=== PATIENT | female | born 1960 | race African-American/Black ===

== ENCOUNTER 2018-09-16 09:40 | Emergency (ER) | payer SELFPAY ==
[2018-09-16] MEDS ORDERED: ONDANSETRON HCL INJ/PF 4 MG/2 ML SDV IV ONE (10:27)
[2018-09-16] MEDS ORDERED: FENTANYL CITRATE INJ/PF 100 MCG/2 ML AMPUL IV ONE (10:27)
--- NOTE | 2018-09-16 10:30 | ER Document Report ---
ED Medical Screen (RME) - General Chief Complaint: Low Back Pain Stated Complaint: BACK PAIN Time Seen by Provider: 09/16/18 10:24 Primary Care Provider: ISREAL CHAPA [Primary Care Provider] - Follow up as needed Mode of Arrival: Ambulatory Information source: Patient Notes: 58-year-old female presents emergency department with a one week history of right flank pain with radiation into the right lower quadrant. She describes the pain as a constant sharp and stabbing sensation. She states that she is tried Tylenol and Advil without complete relief of symptoms. She is having associated nausea and constipation. She denies any dysuria, increased urgency, increased frequency, hematuria. Patient does have a history of kidney stones and states that this feels similar to previous. I have greeted and performed a rapid initial assessment of this patient. A comprehensive ED assessment and evaluation of the patient, analysis of test results and completion of the medical decision making process will be conducted by additional ED providers. PHYSICAL EXAMINATION: GENERAL: Well-appearing, well-nourished and in no acute distress. HEAD: Atraumatic, normocephalic. EYES: Pupils equal round extraocular movements intact, conjunctiva are normal. ENT: Nares patent NECK: Normal range of motion LUNGS: No respiratory distress Musculoskeletal: Normal range of motion NEUROLOGICAL: Normal speech, normal gait. PSYCH: Normal mood, normal affect. SKIN: Warm, Dry, normal turgor, no rashes or lesions noted. TRAVEL OUTSIDE OF THE [place] IN LAST 30 DAYS: No - Related Data Allergies/Adverse Reactions: No Known Allergies Allergy (Verified 09/16/18 09:53) Past Medical History - Social History Chew tobacco use (# tins/day): No Frequency of alcohol use: None Drug Abuse: None Renal/ Medical History: Reports: Hx Kidney Stones. Denies: Hx Peritoneal Dialysis Past Surgical History: Reports: Hx Hysterectomy Physical Exam - Vital signs Vitals: Temp Pulse Resp BP Pulse Ox 98.1 F 68 18 149/94 H 100 09/16/18 09:51 09/16/18 09:51 09/16/18 09:51 09/16/18 09:51 09/16/18 09:51 Course - Vital Signs Vital signs: Temp Pulse Resp BP Pulse Ox 98.1 F 68 18 149/94 H 100 09/16/18 09:51 09/16/18 09:51 09/16/18 09:51 09/16/18 09:51 09/16/18 09:51 Doctor's Discharge - Discharge Referrals: LOCALMD,NO [Primary Care Provider] - Follow up as needed
[2018-09-16 11:05] LABS: APPEARANCE,URINE SLIGHTLY-CLOUDY; BILIRUBIN,URINE NEGATIVE (NEGATIVE); COLOR,URINE YELLOW; GLUCOSE, URINE NEGATIVE (NEGATIVE); KETONES,URINE NEGATIVE (NEGATIVE); LEUKOCYTE ESTERASE,URINE SMALL (NEGATIVE); NITRITE,URINE POSITIVE (NEGATIVE); PROTEIN,URINE NEGATIVE (NEGATIVE); URINE SPECIFIC GRAVITY 1.009; UROBILINOGEN,URINE NEGATIVE mg/dL (<2.0)
--- NOTE | 2018-09-16 11:07 | RADIOLOGY REPORT (SQ) ---
EXAM DESCRIPTION: CT ABD/PELVIS NO ORAL OR IV COMPLETED DATE/TIME: 09/16/2018 10:51 am REASON FOR STUDY: right flank pain COMPARISON: None. TECHNIQUE: CT scan of the abdomen and pelvis performed without intravenous or oral contrast. Images reviewed with lung, soft tissue, and bone windows. Reconstructed coronal and sagittal MPR images revi ewed. All images stored on PACS. All CT scanners at this facility use dose modulation, iterative reconstruction, and/or weight based d osing when appropriate to reduce radiation dose to as low as reasonably achievable (ALARA). [facility]: Dose Right [facility]: CareDose [facility]: Dose Right [facility]: Teradose 4D [facility]: Smart [employer] RADIATION DOSE: CT Rad equipment meets quality standard of care and radiation dose reduction techniq ues were employed. CTDIvol: 4.9 mGy. DLP: 236 mGy-cm.mGy. LIMITATIONS: None. FINDINGS: LOWER CHEST: No significant findings. No nodules or infiltrates. NON-CONTRASTED LIVER, SPLEEN, ADRENALS: Evaluation limited by lack of IV contrast. No identified sign ificant masses. Multiple fluid attenuation lesions of the liver, likely simple cysts although incomp letely characterized. PANCREAS: No masses. No peripancreatic inflammatory changes. GALLBLADDER: No identified stones by CT criteria. No inflammatory changes to suggest cholecystitis. RIGHT KIDNEY AND URETER: No suspicious masses. Assessment limited by lack of IV contrast. No signif icant calcifications. No hydronephrosis or hydroureter. LEFT KIDNEY AND URETER: No suspicious masses. Assessment limited by lack of IV contrast. Fluid signa l lesions, likely simple cysts. No significant calcifications. No hydronephrosis or hydroureter. AORTA AND RETROPERITONEUM: No aneurysm. No retroperitoneal masses or adenopathy. BOWEL AND PERITONEAL CAVITY: No obvious masses or inflammatory changes. No free fluid. Large burden of stool in the colon. APPENDIX: Normal. PELVIS, BLADDER, AND ABDOMINAL WALL:No abnormal masses. No free fluid. Bladder normal. BONES: No significant findings. OTHER: No other significant finding. IMPRESSION: No noncontrast CT findings to explain right-sided flank pain. No evidence of urinary tr act calculus or hydronephrosis. Large burden of stool in the colon. COMMENT: Quality ID # [id number]: Final reports with documentation of one or more dose reduction techniques (e.g., Automated exposure control, adjustment of the mA and/or kV according to patient size, use of iterative reconstruction technique) TECHNICAL DOCUMENTATION: JOB ID: [id number] [employer]- All Rights Reserved Reading location - IP/workstation name: [email or web address]
[2018-09-16] MEDS ORDERED: NORMAL SALINE 1000 ML 1,000 ML IV ONE (11:20)
[2018-09-16] MEDS ORDERED: CEFTRIAXONE INJ 1000 MG VIAL IV ONE (11:26)
--- NOTE | 2018-09-16 11:28 | ER Document Report ---
ED GI/ - General Chief Complaint: Low Back Pain Stated Complaint: BACK PAIN Time Seen by Provider: 09/16/18 10:24 Primary Care Provider: ISREAL CHAPA [NO LOCAL MD] - Follow up as needed Mode of Arrival: Ambulatory Information source: Patient TRAVEL OUTSIDE OF THE [place] IN LAST 30 DAYS: No - HPI Patient complains to provider of: Dysuria, Flank pain Onset: Last week Timing/Duration: Persistent, Worse Quality of pain: Dull, Fullness, Pressure Severity at maximum: Moderate Severity in ED: Moderate Pain Level: 4 Location: Right flank Associated symptoms: Dysuria, Nausea, Urinary frequency Exacerbated by: Denies Relieved by: Denies Similar symptoms previously: No Recently seen / treated by doctor: No Notes: 09/16/18 11:27 Patient is a 58-year-old female presenting to the emergency room complaining of right flank pain that is been present for 3 or 4 days, is associated with urinary frequency and dysuria as well as nausea, states she feels dry and dehydrated as well, patient denies any diarrhea in fact reports she is generally constipated, she denies any blood in her urine, no fevers, no vomiting - Related Data Allergies/Adverse Reactions: No Known Allergies Allergy (Verified 09/16/18 09:53) Past Medical History - General Information source: Patient - Social History Smoking Status: Never Smoker Chew tobacco use (# tins/day): No Frequency of alcohol use: None Drug Abuse: None Family History: Reviewed & Not Pertinent Patient has suicidal ideation: No Patient has homicidal ideation: No Renal/ Medical History: Reports: Hx Kidney Stones. Denies: Hx Peritoneal Di alysis Past Surgical History: Reports: Hx Hysterectomy Review of Systems - Review of Systems Constitutional: No symptoms reported EENT: No symptoms reported Cardiovascular: No symptoms reported Respiratory: No symptoms reported Gastrointestinal: See HPI Genitourinary: See HPI Female Genitourinary: No symptoms reported Musculoskeletal: No symptoms reported Skin: No symptoms reported Hematologic/Lymphatic: No symptoms reported Neurological/Psychological: No symptoms reported -: Yes All other systems reviewed and negative Physical Exam - Vital signs Vitals: Temp Pulse Resp BP Pulse Ox 98.1 F 68 18 149/94 H 100 09/16/18 09:51 09/16/18 09:51 09/16/18 09:51 09/16/18 09:51 09/16/18 09:51 Interpretation: Normal - General General appearance: Appears well, Alert - HEENT Head: Normocephalic, Atraumatic Eyes: Normal Pupils: PERRL - Respiratory Respiratory status: No respiratory distress Chest status: Nontender Breath sounds: Normal Chest palpation: Normal - Cardiovascular Rhythm: Regular Heart sounds: Normal auscultation Murmur: No - Abdominal Inspection: Normal Distension: No distension Bowel sounds: Normal Tenderness: Nontender Organomegaly: No organomegaly - Back Back: Normal, CVA tenderness - Right side - Extremities General upper extremity: Normal inspection, Nontender, Normal color, Normal ROM, Normal temperature General lower extremity: Normal inspection, Nontender, Normal color, Normal ROM, Normal temperature, Normal weight bearing. No: Luz's sign - Neurological Neuro grossly intact: Yes Cognition: Normal Orientation: AAOx4 [place] Coma Scale Eye Opening: Spontaneous [place] Coma Scale Verbal: Oriented [place] Coma Scale Motor: Obeys Commands [place] Coma Scale Total: 15 Speech: Normal Motor strength normal: LUE, RUE, LLE, RLE Sensory: Normal - Psychological Associated symptoms: Normal affect, Normal mood - Skin Skin Temperature: Warm Skin Moisture: Dry Skin Color: Normal Course - Re-evaluation Re-evalutation: 09/16/18 13:18 Patient resting comfortably, reports feeling much better, lab and imaging findings were discussed at bedside which are consistent with a urinary tract infection, patient will be discharged with prescription for antibiotics and instructions for follow-up, advised to return if symptoms worsen, patient acknowledges understanding and agreement with this plan - Vital Signs Vital signs: Temp Pulse Resp BP Pulse Ox 98.1 F 68 18 149/94 H 100 09/16/18 09:51 09/16/18 09:51 09/16/18 09:51 09/16/18 09:51 09/16/18 09:51 - Laboratory Result Diagrams: 09/16/18 11:37 09/16/18 11:37 Laboratory results interpreted by me: 09/16/18 09/16/18 09/16/18 10:30 11:37 11:37 WBC 1.9 L Hgb 11.9 L Monocytes % (Manual) 2 L Abs Neuts (Manual) 1.0 L Abs Monocytes (Manual) 0.0 L Calcium 11.4 H AST 42 H Urine Blood SMALL H Urine Nitrite POSITIVE H Ur Leukocyte Esterase SMALL H - Diagnostic Test Radiology reviewed: Image reviewed, Reports reviewed Discharge - Discharge Clinical Impression: Urinary tract infection Qualifiers: Urinary tract infection type: site unspecified Hematuria presence: without hematuria Qualified Code(s): N39.0 - Urinary tract infection, site not specified Condition: Stable Disposition: HOME, SELF-CARE Instructions: Urinary Tract Infection ([facility]), Cephalexin ([facility]) Additional Instructions: Follow up with your primary care provider in one to 2 days. Return to the emergency room immediately if symptoms worsen or any additional concerns. Prescriptions: Hydrocodone/Acetaminophen [[place] 5-325 mg Tablet] 1 tab PO Q6HP PRN #10 tablet PRN Reason: Cephalexin Monohydrate [Keflex 500 mg Capsule] 500 mg PO BID #20 capsule Referrals: LOCALMD,NO [NO LOCAL MD] - Follow up as needed
[2018-09-16] MEDS ORDERED: KETOROLAC TROMETHAMINE INJ/PF 30 MG/1 ML SDV IV ONE (11:29)
[2018-09-16 11:53] LABS: HEMATOCRIT 36.3 % (36.0-47.0); HEMOGLOBIN 11.9 g/dL (12.0-15.5); MEAN CORPUSCULAR HEMOGLOBIN 28.2 pg (27.0-33.4); MEAN CORPUSCULAR HGB CONC 32.8 g/dL (32.0-36.0); MEAN CORPUSCULAR VOLUME 86 fl (80-97); PLATELET COUNT 221 10^3/uL (150-450); RED BLOOD COUNT 4.21 10^6/uL (3.72-5.28); RED CELL DISTRIBUTION WIDTH 13.4 % (11.5-14.0)
[2018-09-16 12:06] LABS: ALANINE AMINOTRANSFERASE 42 U/L (9-52); ALBUMIN 4.3 g/dL (3.5-5.0); ALKALINE PHOSPHATASE 108 U/L (38-126); ANION GAP 8 (5-19); ASPARTATE AMINO TRANSFERASE 42 U/L (14-36); BILIRUBIN,DIRECT 0.3 mg/dL (0.0-0.4); BILIRUBIN,TOTAL 0.4 mg/dL (0.2-1.3); BLOOD UREA NITROGEN 12 mg/dL (7-20); CALCIUM 11.4 mg/dL (8.4-10.2); CARBON DIOXIDE 26 mmol/L (22-30); CHLORIDE 106 mmol/L (98-107); GLUCOSE 85 mg/dL (75-110); LIPASE 108.7 U/L (23-300); POTASSIUM 4.2 mmol/L (3.6-5.0); SODIUM 139.8 mmol/L (137-145); TOTAL PROTEIN 7.2 g/dL (6.3-8.2)
[2018-09-16 12:40] LABS: WHITE BLOOD COUNT 1.9 10^3/uL (4.0-10.5)
[2018-09-16] MEDS ORDERED: MORPHINE SULFATE 10 MG/ML INJ IV ONE (12:42)
[2018-09-16 12:57] LABS: ABSOLUTE LYMPHOCYTES# (MANUAL) 0.8 10^3/uL (0.5-4.7); BASOPHILS % (MANUAL) 0 % (0-2); EOSINOPHILS % (MANUAL) 3 % (0-6); LYMPHOCYTES % (MANUAL) 40 % (13-45); MONOCYTES % (MANUAL) 2 % (3-13); PLATELET COMMENT ADEQUATE; SEGMENTED NEUTROPHILS % (MAN) 54 % (42-78); TOTAL CELLS COUNTED 100; TOXIC GRANULATION SLIGHT; TOXIC VACUOLATION PRESENT
[2018-09-16 12:58] LABS: RBC MORPHOLOGY COMMENT NORMO-CYTIC/CHROMIC
[2018-09-16 13:37] VITALS: BP 166/72
--- NOTE | 2018-09-16 13:57 | EKG REPORT ---
SEVERITY:- OTHERWISE NORMAL ECG - SINUS RHYTHM LEFT AXIS DEVIATION : Confirmed by: Bjorn Hanna MD 16-Sep-2018 13:56:45
[2018-09-17 15:07] LABS: PATH REVIEW PATHOLOGIST REVIEWED
== END 2018-09-16 13:32 | disposition home or self-care (01) ==
LOC: ER 09:40
DX: N39.0 Urinary tract infection, site not specified (principal); M54.5 Low back pain; R10.9 Unspecified abdominal pain; R11.0 Nausea; Z90.710 Acquired absence of both cervix and uterus
CPT/HCPCS: 93005; 36415; 83690; 85025; 80053; 81001; 74176; 93010; J1885; J2270; J0696; J2405; J7030

== ENCOUNTER 2018-09-26 10:08 | Emergency (ER) | payer SELFPAY ==
[2018-09-26] MEDS ORDERED: ONDANSETRON 4 MG TAB.RAPDIS PO ONE (11:04)
--- NOTE | 2018-09-26 11:04 | ER Document Report ---
ED Medical Screen (RME) - General Chief Complaint: Abdominal Pain Stated Complaint: ABDOMINAL PAIN AND NUMBNESS Time Seen by Provider: 09/26/18 10:53 Mode of Arrival: Ambulatory Information source: Patient Notes: 58-year-old female presents the emergency department with complaints of sharp stabbing pain in the right lower abdominal pain that is been going on for the last 2 weeks. No alleviating or exacerbating factors. Patient states that she was seen and evaluated in the emergency department initially and was diagnosed with urinary tract infection. She was discharged home on Keflex. She states that she did have a CT abdomen pelvis done in the emergency department no kidney stone or appendicitis was appreciated. She's been taking the keflex but symptoms haven't improved. Patient is having associated nausea, vomiting, fever, chills. I have greeted and performed a rapid initial assessment of this patient. A comprehensive ED assessment and evaluation of the patient, analysis of test results and completion of the medical decision making process will be conducted by additional ED providers. PHYSICAL EXAMINATION: GENERAL: Well-appearing, well-nourished and in no acute distress. HEAD: Atraumatic, normocephalic. EYES: Pupils equal round extraocular movements intact, conjunctiva are normal. ENT: Nares patent NECK: Normal range of motion LUNGS: No respiratory distress Musculoskeletal: Normal range of motion NEUROLOGICAL: Normal speech, normal gait. PSYCH: Normal mood, normal affect. SKIN: Warm, Dry, normal turgor, no rashes or lesions noted. TRAVEL OUTSIDE OF THE [place] IN LAST 30 DAYS: No - Related Data Allergies/Adverse Reactions: No Known Allergies Allergy (Verified 09/26/18 10:58) Past Medical History - Social History Chew tobacco use (# tins/day): No Frequency of alcohol use: None Drug Abuse: None Renal/ Medical History: Reports: Hx Kidney Stones. Denies: Hx Peritoneal Dialysis Past Surgical History: Reports: Hx Hysterectomy Physical Exam - Vital signs Vitals: Temp Pulse Resp BP Pulse Ox 98.4 F 64 20 147/90 H 99 09/26/18 10:19 09/26/18 10:19 09/26/18 10:19 09/26/18 10:09/26/18 10:19 Course - Vital Signs Vital signs: Temp Pulse Resp BP Pulse Ox 98.4 F 64 20 147/90 H 99 09/26/18 10:19 09/26/18 10:19 09/26/18 10:19 09/26/18 10:09/26/18 10:19
[2018-09-26 11:45] LABS: ABSOLUTE LYMPHOCYTES (AUTO) 1.1 10^3/uL (0.5-4.7); ABSOLUTE MONOCYTES (AUTO) 0.4 10^3/uL (0.1-1.4); BASOPHILS % (AUTO) 1.6 % (0-2); HEMATOCRIT 37.2 % (36.0-47.0); HEMOGLOBIN 12.1 g/dL (12.0-15.5); LYMPHOCYTES % (AUTO) 41.6 % (13-45); MEAN CORPUSCULAR HEMOGLOBIN 28.2 pg (27.0-33.4); MEAN CORPUSCULAR HGB CONC 32.4 g/dL (32.0-36.0); MEAN CORPUSCULAR VOLUME 87 fl (80-97); MONOCYTES % (AUTO) 15.6 % (3-13); PLATELET COUNT 273 10^3/uL (150-450); RED BLOOD COUNT 4.28 10^6/uL (3.72-5.28); RED CELL DISTRIBUTION WIDTH 14.3 % (11.5-14.0); SEGMENTED NEUTROPHILS % (AUTO) 39.2 % (42-78); TOTAL CELLS COUNTED % (AUTO) 100 %; WHITE BLOOD COUNT 2.5 10^3/uL (4.0-10.5)
[2018-09-26 11:55] LABS: APPEARANCE,URINE CLEAR; BILIRUBIN,URINE NEGATIVE (NEGATIVE); COLOR,URINE AMBER; GLUCOSE, URINE NEGATIVE (NEGATIVE); KETONES,URINE NEGATIVE (NEGATIVE); LEUKOCYTE ESTERASE,URINE NEGATIVE (NEGATIVE); NITRITE,URINE POSITIVE (NEGATIVE); PROTEIN,URINE NEGATIVE (NEGATIVE); URINE SPECIFIC GRAVITY 1.011
[2018-09-26] MEDS ORDERED: KETOROLAC TROMETHAMINE INJ/PF 30 MG/1 ML SDV IV ONE (11:58)
[2018-09-26] MEDS ORDERED: NORMAL SALINE 1000 ML 1,000 ML IV ONE (11:58)
[2018-09-26] MEDS ORDERED: CEFTRIAXONE INJ 1000 MG VIAL IV ONE (11:59)
--- NOTE | 2018-09-26 11:59 | ER Document Report ---
ED General - General Chief Complaint: Abdominal Pain Stated Complaint: ABDOMINAL PAIN AND NUMBNESS Time Seen by Provider: 09/26/18 10:53 Primary Care Provider: CURT CRENSHAW DO [Primary Care Provider] - Follow up as needed Mode of Arrival: Ambulatory Notes: Patient is a 58-year-old female that presents to the emergency department for chief complaint of right flank and abdominal pain. Patient reports his been having this pain for about 2 weeks now, she was initially seen in the ED at that time, had a CT at that time which she states was negative, she was given a pain pill which she states with use of the pain and then it has come back since she is run out of those. She was treated for a UTI at that time with Keflex, which she states did not help her symptoms. She was taken some ibuprofen which did seem to help her with her pain, but because it was persisting she decided to com e to the emergency department. She currently rates her pain as a 6 out of 10 describes it as sharp and constant. She states she has been having constipation and has not had many bowel movements recently, she is been having nausea but no vomiting. Denies fevers, chills, night sweats, chest pain, shortness of breath, no other complaints at this time. Past Medical History: Kidney stones Past Surgical History: Hysterectomy Social History: Denies current tobacco, alcohol or drug use Family History: Reviewed and noncontributory for presenting illness Allergies: Reviewed, see documented allergy list. REVIEW OF SYSTEMS: Other than noted above, the 12 point review of systems was reviewed with the patient and were negative, all pertinent findings are included in the HPI. PHYSICAL EXAMINATION: Vital signs reviewed, nursing noted reviewed. GENERAL: Patient appears uncomfortable HEAD: Atraumatic, normocephalic. EYES: Eyes appear normal, extraocular movements intact, sclera anicteric, co njunctiva are normal. ENT: nares patent, oropharynx clear without exudates. Moist mucous membranes. NECK: Normal range of motion, supple without lymphadenopathy LUNGS: Breath sounds clear to auscultation bilaterally and equal. No wheezes rales or rhonchi. HEART: Regular rate and rhythm without murmurs ABDOMEN: Soft, mild right flank tenderness to palpation right upper quadrant tenderness with negative Garcia sign,, normoactive bowel sounds. No rebound, guarding, or rigidity. No masses appreciated. EXTREMITIES: Nontender, good range of motion, no pitting or edema. NEUROLOGICAL: No focal neurological deficits. Moves all extremities spontaneously Motor and sensory grossly intact on exam. PSYCH: Normal mood, normal affect. SKIN: Warm, Dry, normal turgor, no rashes or lesions noted on exposed skin TRAVEL OUTSIDE OF THE [place] IN LAST 30 DAYS: No - Related Data Allergies/Adverse Reactions: No Known Allergies Allergy (Verified 09/26/18 10:58) Past Medical History - General Information source: Patient - Social History Smoking Status: Never Smoker Chew tobacco use (# tins/day): No Frequency of alcohol use: None Drug Abuse: None Family History: Reviewed & Not Pertinent Patient has suicidal ideation: No Patient has homicidal ideation: No Renal/ Medical History: Reports: Hx Kidney Stones. Denies: Hx Peritoneal Dialysis Past Surgical History: Reports: Hx Hysterectomy Physical Exam - Vital signs Vitals: Temp Pulse Resp BP Pulse Ox 98.4 F 64 20 147/90 H 99 09/26/18 10:19 09/26/18 10:19 09/26/18 10:19 09/26/18 10:19 09/26/18 10:19 Course - Re-evaluation Re-evalutation: Patient seen and examined vital signs reviewed. Laboratory data and imaging were ordered as appropriate for the patient's presenting symptoms and complaint, with consideration of any critical or life threatening conditions that may be associated with their obtained history and exam as noted above. Patient was treated with IV fluids, Toradol, Zofran initially for her pain and nausea Results were reviewed when available and demonstrated unremarkable blood work, her UA was positive for nitrites, indicative of possible UTI, right upper quadrant ultrasound was performed, and was negative for any acute pathology, no hydronephrosis of the right kidney, and normal-appearing gallbladder. The patient was re-evaluated and was still having some pain, she was given additional morphine for pain, and on her additional evaluation, she was feeling somewhat better. Evaluation was most consistent with urinary tract infection, possible pyonephritis, patient was given a dose of IV Rocephin in the emergency department, will manage as outpatient with ciprofloxacin 500 mg for 7 additional days, patient additionally will be given a prescription for anti-inflammatory as well as Pyridium. Patient agreeable to plan of care. Results were discussed with the patient at this point, after careful consideration I feel that that patient can be discharged from the emergency department, the patient was educated treatments and reasons to return to the emergency department based on their presumed diagnosis as noted above, they were advised to followup with a primary care physician in 2-3 days. Patient was agreeable to plan of care. *Note is created using voice recognition software and may contain spelling, syntax or grammatical errors. Laboratory 09/26/18 09/26/18 09/26/18 11:18 11:18 11:18 WBC 2.5 L RBC 4.28 Hgb 12.1 Hct 37.2 MCV 87 MCH 28.2 MCHC 32.4 RDW 14.3 H Plt Count 273 Seg Neutrophils % 39.2 L Lymphocytes % 41.6 Monocytes % 15.6 H Eosinophils % 2.0 Basophils % 1.6 Absolute Neutrophils 1.0 L Absolute Lymphocytes 1.1 Absolute Monocytes 0.4 Absolute Eosinophils 0.0 Absolute Basophils 0.0 Sodium 140.9 Potassium 3.6 Chloride 106 Carbon Dioxide 25 Anion Gap 10 BUN 12 Creatinine 0.76 Est GFR ( Amer) > 60 Est GFR (Non-Af Amer) > 60 Glucose 95 Calcium 11.7 H Total Bilirubin 0.6 Direct Bilirubin 0.0 Neonat Total Bilirubin Not Reportable Neonat Direct Bilirubin Not Reportable Neonat Indirect Bili Not Reportable AST 36 ALT 54 H Alkaline Phosphatase 110 Total Protein 8.0 Albumin 4.7 Lipase 186.7 Urine Color GENARO Urine Appearance CLEAR Urine pH 5.0 Ur Specific [place] 1.011 Urine Protein NEGATIVE Urine Glucose (UA) NEGATIVE Urine Ketones NEGATIVE Urine Blood NEGATIVE Urine Nitrite POSITIVE H Urine Bilirubin NEGATIVE Urine Urobilinogen 4.0 H Ur Leukocyte Esterase NEGATIVE Urine WBC (Auto) 1 Urine RBC (Auto) 3 Urine Bacteria (Auto) TRACE Squamous Epi Cells Auto <1 Urine Mucus (Auto) OCC Urine Ascorbic Acid NEGATIVE Abdomen Ultrasound 09/26/18 11:58 IMPRESSION: NO ACUTE FINDINGS. - Vital Signs Vital signs: Temp Pulse Resp BP Pulse Ox 98.4 F 64 20 147/90 H 99 09/26/18 10:19 09/26/18 10:19 09/26/18 10:19 09/26/18 10:19 09/26/18 10:19 - Laboratory Result Diagrams: 09/26/18 11:18 09/26/18 11:18 Laboratory results interpreted by me: 09/26/18 09/26/1819 11:18 11:18 11:18 WBC 2.5 L RDW 14.3 H Seg Neutrophils % 39.2 L Monocytes % 15.6 H Absolute Neutrophils 1.0 L Calcium 11.7 H ALT 54 H Urine Nitrite POSITIVE H Urine Urobilinogen 4.0 H Discharge - Discharge Clinical Impression: Pyelonephritis, Flank pain Condition: Stable Disposition: HOME, SELF-CARE Instructions: Pyelonephritis ([facility]), Abdominal Pain ([facility]) Additional Instructions: Please return to the emergency department if you have any worsening, or concern of your symptoms. Please return to the emergency department if you develop chest pain, difficulty breathing, severe abdominal pain, or ongoing vomiting. Please follow-up with your primary care physician in 2-3 days and any other recommended physicians. If prescribed, take all medications as directed. If you have any questions or concerns do not hesitate to return the emergency d epartment for evaluation. Please take the complete course of antibiotics, do not take this antibiotic with calcium, Tums, or milk as it will make the medication ineffective. Avoid any heavy lifting or running while taking this antibiotic Prescriptions: Ibuprofen [Motrin 600 mg Tablet] 600 mg PO Q8HP PRN #30 tablet PRN Reason: FLANK PAIN Ciprofloxacin HCl [Cipro 500 mg Tablet] 500 mg PO BID #14 tablet Phenazopyridine HCl [Pyridium 200 mg Tablet] 200 mg PO TID #9 tablet Referrals: CURT CRENSHAW DO [Primary Care Provider] - Follow up in 3-5 days
[2018-09-26 12:13] LABS: ALANINE AMINOTRANSFERASE 54 U/L (9-52); ALBUMIN 4.7 g/dL (3.5-5.0); ALKALINE PHOSPHATASE 110 U/L (38-126); ANION GAP 10 (5-19); ASPARTATE AMINO TRANSFERASE 36 U/L (14-36); BILIRUBIN,TOTAL 0.6 mg/dL (0.2-1.3); BLOOD UREA NITROGEN 12 mg/dL (7-20); CALCIUM 11.7 mg/dL (8.4-10.2); CARBON DIOXIDE 25 mmol/L (22-30); CHLORIDE 106 mmol/L (98-107); GLUCOSE 95 mg/dL (75-110); LIPASE 186.7 U/L (23-300); POTASSIUM 3.6 mmol/L (3.6-5.0); SODIUM 140.9 mmol/L (137-145)
[2018-09-26] MEDS ORDERED: MORPHINE SULFATE 10 MG/ML INJ IV ONE (12:37)
--- NOTE | 2018-09-26 13:11 | RADIOLOGY REPORT (SQ) ---
EXAM DESCRIPTION: U/S ABDOMEN LIMITED W/O DOP COMPLETED DATE/TIME: 09/26/2018 12:54 pm REASON FOR STUDY: ruq/r flank pain COMPARISON: 09/16/2018 CT TECHNIQUE: Dynamic and static grayscale images acquired of the abdomen and recorded on PACS. Ruyo taylor selected color Doppler and spectral images recorded. LIMITATIONS: None. FINDINGS: PANCREAS: No masses. Visualized pancreatic duct normal caliber. LIVER: Multiple scattered cysts, largest 2.3 cm in the left lobe. Otherwise Echotexture normal. LIVER VASCULATURE: Normal directional flow of the main portal vein and hepatic veins. GALLBLADDER: No stones. Normal wall thickness. No pericholecystic fluid. ULTRASOUND-DETECTED ABDUL'S SIGN: Negative. INTRAHEPATIC DUCTS AND COMMON DUCT: CBD and intrahepatic ducts normal caliber. No filling defects. INFERIOR VENA CAVA: Normal flow. AORTA: No aneurysm identified. RIGHT KIDNEY: Normal size. Normal echogenicity. No solid or suspicious masses. No hydronephros is. No calcifications. PERITONEAL AND RIGHT PLEURAL SPACE: No ascites or effusions. OTHER: No other significant findings. IMPRESSION: NO ACUTE FINDINGS. TECHNICAL DOCUMENTATION: JOB ID: [id number] 2010 [employer]- All Rights Reserved Reading location - IP/workstation name: [email or web address]
[2018-09-26 14:18] VITALS: BP 143/87
== END 2018-09-26 14:18 | disposition home or self-care (01) ==
LOC: ER 10:08
DX: N12 Tubulo-interstitial nephritis, not specified as acute or chronic (principal); R10.9 Unspecified abdominal pain; R20.0 Anesthesia of skin; R11.0 Nausea
CPT/HCPCS: 36415; 87086; 83690; 85025; 87088; 80053; 81001; 87186; 76705; S0119; J1885; J2270; J0696; J7030

== ENCOUNTER 2018-10-15 08:19 | Emergency (ER) | payer SELFPAY ==
[2018-10-15] MEDS ORDERED: ONDANSETRON HCL INJ/PF 4 MG/2 ML SDV IV ONE ×2 (09:28→12:06)
[2018-10-15] MEDS ORDERED: NORMAL SALINE 1000 ML 1,000 ML IV ONE ×2 (09:28→10:57)
[2018-10-15] MEDS ORDERED: KETOROLAC TROMETHAMINE INJ/PF 30 MG/1 ML SDV IV ONE (09:30)
[2018-10-15 09:36] LABS: ABSOLUTE EOSINOPHILS # (AUTO) 0.2 10^3/uL (0.0-0.6); ABSOLUTE MONOCYTES (AUTO) 0.4 10^3/uL (0.1-1.4); ABSOLUTE NEUT (AUTO) 1.5 10^3/uL (1.7-8.2); BASOPHILS % (AUTO) 1.4 % (0-2); HEMATOCRIT 33.9 % (36.0-47.0); HEMOGLOBIN 11.2 g/dL (12.0-15.5); LYMPHOCYTES % (AUTO) 31.9 % (13-45); MEAN CORPUSCULAR HEMOGLOBIN 28.6 pg (27.0-33.4); MEAN CORPUSCULAR VOLUME 87 fl (80-97); MONOCYTES % (AUTO) 13.8 % (3-13); PLATELET COUNT 285 10^3/uL (150-450); RED BLOOD COUNT 3.91 10^6/uL (3.72-5.28); RED CELL DISTRIBUTION WIDTH 14.5 % (11.5-14.0); SEGMENTED NEUTROPHILS % (AUTO) 47.9 % (42-78); TOTAL CELLS COUNTED % (AUTO) 100 %; WHITE BLOOD COUNT 3.1 10^3/uL (4.0-10.5)
[2018-10-15 09:48] LABS: ALANINE AMINOTRANSFERASE 50 U/L (9-52); ALBUMIN 4.3 g/dL (3.5-5.0); ALKALINE PHOSPHATASE 89 U/L (38-126); ANION GAP 8 (5-19); ASPARTATE AMINO TRANSFERASE 53 U/L (14-36); BILIRUBIN,DIRECT 0.3 mg/dL (0.0-0.4); BILIRUBIN,TOTAL 0.4 mg/dL (0.2-1.3); BLOOD UREA NITROGEN 11 mg/dL (7-20); CARBON DIOXIDE 25 mmol/L (22-30); CHLORIDE 106 mmol/L (98-107); GLUCOSE 104 mg/dL (75-110); POTASSIUM 3.6 mmol/L (3.6-5.0); SODIUM 139.3 mmol/L (137-145); TOTAL PROTEIN 7.4 g/dL (6.3-8.2)
[2018-10-15 09:49] LABS: AMORPHOUS SEDIMENT,URINE TRACE /HPF; APPEARANCE,URINE CLOUDY; BILIRUBIN,URINE NEGATIVE (NEGATIVE); COLOR,URINE YELLOW; GLUCOSE, URINE NEGATIVE (NEGATIVE); KETONES,URINE NEGATIVE (NEGATIVE); LEUKOCYTE ESTERASE,URINE NEGATIVE (NEGATIVE); NITRITE,URINE NEGATIVE (NEGATIVE); PROTEIN,URINE NEGATIVE (NEGATIVE); UROBILINOGEN,URINE NEGATIVE mg/dL (<2.0)
[2018-10-15] MEDS ORDERED: MAGNESIUM CITRATE 296 ML BOTTLE PO ONE (09:54)
--- NOTE | 2018-10-15 09:59 | ER Document Report ---
ED General - General Chief Complaint: Abdominal Pain Stated Complaint: BACK PAIN Time Seen by Provider: 10/15/18 09:27 TRAVEL OUTSIDE OF THE [place] IN LAST 30 DAYS: No - HPI Notes: Patient is a 58-year-old female that presents to the emergency department for chief complaint of right flank pain. Patient states she has been having intermittent pain on her right flank for the last 6 weeks. She states she was seen in the emergency room here and diagnosed with pyelonephritis. After completing her antibiotics she reports that her flank pain resolved. She denies any current dysuria, urinary frequency, fevers or chills. She states she is constipated and has not had a good bowel movement for a few weeks. She did have a bowel movement yesterday but states it was a small amount and was firm. Patient states she has been taking "sips" of magnesium citrate every 8 hours. She also states she was seen at [place] emergency room and diagnosed with constipation last week. She reports the pain is all over her right side. It is worse with movement. She denies relieving factors. She states she has not taken any of the opiate pain medication in a few weeks. Past Medical History: Kidney stones Past Surgical History: Hysterectomy Social History: Denies tobacco, drug, and alcohol use Family History: Reviewed and noncontributory for presenting illness Allergies: Reviewed, see documented allergy list. REVIEW OF SYSTEMS: CONSTITUTIONAL : No fever No chills No diaphoresis No recent illness EENT: No vision changes No congestion No sore throat CARDIOVASCULAR: No chest pain No palpitations RESPIRATORY: No shortness of breath No cough No difficulty breathing GASTROINTESTINAL: abdominal pain nausea No vomiting No diarrhea Constipation GENITOURINARY: No dysuria No hematuria No difficulty urinating MUSCULOSKELETAL: No back pain No leg pain No arm pain SKIN: No rashes No lesions LYMPHATIC: No swollen, enlarged glands. NEUROLOGICAL: No lightheadedness No headache No weakness No paresthesias PSYCHIATRIC: No anxiety No depression PHYSICAL EXAMINATION: Vital signs reviewed, nursing noted reviewed. GENERAL: Well-appearing, well-nourished and in no acute distress. HEAD: Atraumatic, normocephalic. EYES: Eyes appear normal, extraocular movements intact, sclera anicteric, conjunctiva are normal. ENT: nares patent, oropharynx clear without exudates. Moist mucous membranes. NECK: Normal range of motion, supple without lymphadenopathy LUNGS: Breath sounds clear to auscultation bilaterally and equal. No wheezes rales or rhonchi. HEART: Regular rate and rhythm without murmurs ABDOMEN: Soft, mild diffuse tenderness and right upper and lower quadrant, no CVA tenderness. No rebound, guarding, or rigidity. No masses appreciated. EXTREMITIES: Nontender, good range of motion, no pitting or edema. NEUROLOGICAL: No focal neurological deficits. Moves all extremities spontaneously Motor and sensory grossly intact on exam. PSYCH: Normal mood, normal affect. SKIN: Warm, Dry, normal turgor, no rashes or lesions noted on exposed skin - Related Data Allergies/Adverse Reactions: No Known Allergies Allergy (Verified 10/15/18 08:21) Past Medical History - Social History Smoking Status: Unknown if Ever Smoked Family History: Reviewed & Not Pertinent Patient has suicidal ideation: No Patient has homicidal ideation: No Renal/ Medical History: Reports: Hx Kidney Stones. Denies: Hx Peritoneal Dialysis Past Surgical History: Reports: Hx Hysterectomy Physical Exam - Vital signs Vitals: Temp Pulse Resp BP Pulse Ox 99.3 F 91 20 152/89 H 100 10/15/18 08:23 10/15/18 08:23 10/15/18 08:23 10/15/18 08:23 10/15/18 08:23 Course - Re-evaluation Re-evalutation: 10/15/18 09:57 Vitals reviewed. Nursing notes reviewed. Patient does have some tenderness on the right side of her abdomen with no peritoneal signs guarding or rigidity. Will be given magnesium citrate and enema for her constipation. She was given IV fluids and Zofran for her nausea. 10/15/18 13:38 After IV fluids patient's hypercalcemia has normalized. She has had a bowel movement. Her CT scan showed constipation with no other acute process. Patient did have a liver and renal cyst which she is aware of. Patient encouraged to continue taking magnesium citrate or MiraLAX at home as needed for her constipation. She is feeling better. She was discharged in stable condition. Laboratory 10/15/18 10/15/18 10/15/18 08:35 08:35 08:35 WBC 3.1 L RBC 3.91 Hgb 11.2 L Hct 33.9 L MCV 87 MCH 28.6 MCHC 33.0 RDW 14.5 H Plt Count 285 Seg Neutrophils % 47.9 Lymphocytes % 31.9 Monocytes % 13.8 H Eosinophils % 5.0 Basophils % 1.4 Absolute Neutrophils 1.5 L Absolute Lymphocytes 1.0 Absolute Monocytes 0.4 Absolute Eosinophils 0.2 Absolute Basophils 0.0 Sodium 139.3 Potassium 3.6 Chloride 106 Carbon Dioxide 25 Anion Gap 8 BUN 11 Creatinine 0.79 Est GFR ( Amer) > 60 Est GFR (Non-Af Amer) > 60 Glucose 104 Calcium 12.1 H* Total Bilirubin 0.4 Direct Bilirubin 0.3 Neonat Total Bilirubin Not Reportable Neonat Direct Bilirubin Not Reportable Neonat Indirect Bili Not Reportable AST 53 H ALT 50 Alkaline Phosphatase 89 Total Protein 7.4 Albumin 4.3 Urine Color YELLOW Urine Appearance CLOUDY Urine pH 7.0 Ur Specific [place] 1.010 Urine Protein NEGATIVE Urine Glucose (UA) NEGATIVE Urine Ketones NEGATIVE Urine Blood NEGATIVE Urine Nitrite NEGATIVE Urine Bilirubin NEGATIVE Urine Urobilinogen NEGATIVE Ur Leukocyte Esterase NEGATIVE Urine WBC (Auto) 1 Urine RBC (Auto) 1 U Hyaline Cast (Auto) 3 Urine Bacteria (Auto) TRACE Squamous Epi Cells Auto 9 Amorphous Sediment Auto TRACE Urine Mucus (Auto) RARE Urine Ascorbic Acid NEGATIVE 10/15/18 12:50 WBC RBC Hgb Hct MCV MCH MCHC RDW Plt Count Seg Neutrophils % Lymphocytes % Monocytes % Eosinophils % Basophils % Absolute Neutrophils Absolute Lymphocytes Absolute Monocytes Absolute Eosinophils Absolute Basophils Sodium Potassium Chloride Carbon Dioxide Anion Gap BUN Creatinine Est GFR ( Amer) Est GFR (Non-Af Amer) Glucose Calcium 9.8 Total Bilirubin Direct Bilirubin Neonat Total Bilirubin Neonat Direct Bilirubin Neonat Indirect Bili AST ALT Alkaline Phosphatase Total Protein Albumin Urine Color Urine Appearance Urine pH Ur Specific [place] Urine Protein Urine Glucose (UA) Urine Ketones Urine Blood Urine Nitrite Urine Bilirubin Urine Urobilinogen Ur Leukocyte Esterase Urine WBC (Auto) Urine RBC (Auto) U Hyaline Cast (Auto) Urine Bacteria (Auto) Squamous Epi Cells Auto Amorphous Sediment Auto Urine Mucus (Auto) Urine Ascorbic Acid Abdomen/Pelvis CT 10/15/18 12:06 IMPRESSION: NO SIGNIFICANT OR ACUTE FINDING IN THE ABDOMEN OR PELVIS ON CT SCAN WITH IV CONTRAST. - Vital Signs Vital signs: Temp Pulse Resp BP Pulse Ox 97.8 F 72 16 152/91 H 100 10/15/18 12:44 10/15/18 12:44 10/15/18 12:44 10/15/18 12:44 10/15/18 12:44 - Laboratory Result Diagrams: 10/15/18 08:35 10/15/18 08:35 Laboratory results interpreted by me: 10/15/18 10/15/18 08:35 08:35 WBC 3.1 L Hgb 11.2 L Hct 33.9 L RDW 14.5 H Monocytes % 13.8 H Absolute Neutrophils 1.5 L Calcium 12.1 H* AST 53 H Discharge - Discharge Clinical Impression: Abdominal pain Qualifiers: Abdominal location: right upper quadrant Qualified Code(s): R10.11 - Right upper quadrant pain Constipation Qualifiers: Constipation type: other constipation type Qualified Code(s): K59.09 - Other constipation Condition: Stable Disposition: HOME, SELF-CARE Instructions: Constipation ([facility]) Additional Instructions: Please return to the emergency department if you have any worsening, or concern of your symptoms. Please return to the emergency department if you develop chest pain, difficulty breathing, severe abdominal pain, or ongoing vomiting. Please follow-up with your primary care physician in 2-3 days and any other recommended physicians. If prescribed, take all medications as directed. If you have any questions or concerns do not hesitate to return the emergency department for evaluation. Take MiraLAX at home as needed for constipation. You can take this medication 1 capful every 20 minutes until you have a bowel movement and then stop taking it. After this you should continue to have bowel movements to resolve your constipation. MiraLAX can also be taken 1-2 times daily as needed for constipation symptoms. Referrals: [facility] [Provider Group] - Follow up as needed
[2018-10-15 10:01] LABS: CALCIUM 12.1 mg/dL (8.4-10.2)
--- NOTE | 2018-10-15 12:56 | RADIOLOGY REPORT (SQ) ---
EXAM DESCRIPTION: CT ABD/PELVIS WITH IV ONLY COMPLETED DATE/TIME: 10/15/2018 12:35 pm REASON FOR STUDY: right abdominal pain COMPARISON: CT abdomen pelvis 09/16/2018, 05/26/2007 TECHNIQUE: CT scan of the abdomen and pelvis performed using helical scanning technique with dynamic intravenous contrast injection. No oral contrast. Images reviewed with lung, soft tissue, and bone windows. Reconstructed coronal and sagittal MPR images reviewed. Delayed images for evaluation of the urinary system also acquired. All images stored on PACS. All CT scanners at this facility use dose modulation, iterative reconstruction, and/or weight based d osing when appropriate to reduce radiation dose to as low as reasonably achievable (ALARA). [facility]: Dose Right [facility]: CareDose [facility]: Dose Right [facility]: Teradose 4D [facility]: [employer] CONTRAST TYPE AND DOSE: contrast/concentration: Isovue 350.00 mg/ml; Total Contrast Delivered: 64.0 ml; Total Saline Delivered: 65.0 ml RENAL FUNCTION: Creatinine 0.79 RADIATION DOSE: CT Rad equipment meets quality standard of care and radiation dose reduction techniq ues were employed. CTDIvol: 4.8 - 5.9 mGy. DLP: 488 mGy-cm.. LIMITATIONS: None. FINDINGS: LOWER CHEST: No significant findings. No nodules or infiltrates. LIVER: Normal size. No masses. No dilated ducts. Multiple benign hepatic cysts, the largest is 2 cm in the left lobe liver. SPLEEN: Normal size. No focal lesions. PANCREAS: No masses. No significant calcifications. No adjacent inflammation or peripancreatic fluid collections. Pancreatic duct not dilated. GALLBLADDER: No identified stones by CT criteria. No inflammatory changes to suggest cholecystitis. ADRENAL GLANDS: No significant masses or asymmetry. RIGHT KIDNEY AND URETER: No solid masses. No significant calcifications. No hydronephrosis or hyd roureter. LEFT KIDNEY AND URETER: No solid masses. 2.6 cm left upper pole renal cortical cyst. 2.6 cm left mi dpole renal cortical cyst. No significant calcifications. No hydronephrosis or hydroureter. AORTA AND VESSELS: No aneurysm. No dissection. Renal arteries, SMA, celiac without stenosis. RETROPERITONEUM: No retroperitoneal adenopathy, hemorrhage or masses. BOWEL AND PERITONEAL CAVITY: No masses or inflammatory changes. No free fluid or peritoneal masses. APPENDIX: Normal. PELVIS: No mass. No free fluid. Normal bladder. Post hysterectomy ABDOMINAL WALL: No masses. No hernias. BONES: No significant or acute findings. OTHER: No other significant finding. IMPRESSION: NO SIGNIFICANT OR ACUTE FINDING IN THE ABDOMEN OR PELVIS ON CT SCAN WITH IV CONTRAST. TECHNICAL DOCUMENTATION: JOB ID: [id number] Quality ID # [id number]: Final reports with documentation of one or more dose reduction techniques (e.g., Au tomated exposure control, adjustment of the mA and/or kV according to patient size, use of iterative reconstruction technique) 2010 [employer]- All Rights Reserved Reading location - IP/workstation name: [email or web address]-
[2018-10-15 14:55] VITALS: BP 156/96
== END 2018-10-15 14:55 | disposition home or self-care (01) ==
LOC: ER 08:19
DX: R10.11 Right upper quadrant pain (principal); K59.09 Other constipation; M54.9 Dorsalgia, unspecified; Z87.442 Personal history of urinary calculi; Z90.710 Acquired absence of both cervix and uterus
CPT/HCPCS: 99284; 96361; 96374; 96375; 36415; 82310; 85025; 80053; 81001; 74177; J3490; J1885; J2405; J7030

== ENCOUNTER 2018-10-21 11:02 | Inpatient (IN) | payer OTHER ==
[2018-10-21] MEDS ORDERED: CLONIDINE HCL 0.1 MG TABLET PO ONE (12:30)
[2018-10-21 13:05] LABS: HEMATOCRIT 37.2 % (36.0-47.0); HEMOGLOBIN 12.3 g/dL (12.0-15.5); MEAN CORPUSCULAR HEMOGLOBIN 28.6 pg (27.0-33.4); MEAN CORPUSCULAR VOLUME 87 fl (80-97); PLATELET COUNT 284 10^3/uL (150-450); RED BLOOD COUNT 4.29 10^6/uL (3.72-5.28); RED CELL DISTRIBUTION WIDTH 14.9 % (11.5-14.0); WHITE BLOOD COUNT 3.2 10^3/uL (4.0-10.5)
[2018-10-21 13:24] LABS: ALANINE AMINOTRANSFERASE 56 U/L (9-52); ALKALINE PHOSPHATASE 105 U/L (38-126); ANION GAP 13 (5-19); ASPARTATE AMINO TRANSFERASE 41 U/L (14-36); BILIRUBIN,DIRECT 0.4 mg/dL (0.0-0.4); BILIRUBIN,TOTAL 0.6 mg/dL (0.2-1.3); BLOOD UREA NITROGEN 12 mg/dL (7-20); CARBON DIOXIDE 24 mmol/L (22-30); CHLORIDE 99 mmol/L (98-107); GLUCOSE 90 mg/dL (75-110); POTASSIUM 3.8 mmol/L (3.6-5.0); TOTAL PROTEIN 8.4 g/dL (6.3-8.2)
--- NOTE | 2018-10-21 13:29 | RADIOLOGY REPORT (SQ) ---
EXAM DESCRIPTION: CHEST 2 VIEWS COMPLETED DATE/TIME: 10/21/2018 12:36 pm REASON FOR STUDY: htn,hypercalcemia COMPARISON: Two-view chest 04/13/2009 EXAM PARAMETERS: NUMBER OF VIEWS: two views TECHNIQUE: Digital Frontal and Lateral radiographic views of the chest acquired. RADIATION DOSE: NA LIMITATIONS: none FINDINGS: LUNGS AND PLEURA: No opacities, masses or pneumothorax. No pleural effusion. MEDIASTINUM AND HILAR STRUCTURES: No masses or contour abnormalities. HEART AND VASCULAR STRUCTURES: Heart normal size. No evidence for failure. BONES: No acute findings. HARDWARE: None in the chest. OTHER: No other significant finding. IMPRESSION: NO ACUTE RADIOGRAPHIC FINDING IN THE CHEST. TECHNICAL DOCUMENTATION: JOB ID: [id number] [employer]- All Rights Reserved Reading location - IP/workstation name: [email or web address]
[2018-10-21 13:48] LABS: CALCIUM 12.9 mg/dL (8.4-10.2)
[2018-10-21 14:31] LABS: FREE T4 (FREE THYROXINE) 1.26 ng/dL (0.78-2.19)
[2018-10-21 14:44] LABS: THYROID STIMULATING HORMONE 1.51 uIU/mL (0.47-4.68)
[2018-10-21] MEDS: NORMAL SALINE 1000 ML 1,000 ML IV PRN (16:34)
[2018-10-21] MEDS: VALSARTAN 160 MG TABLET PO SCH (17:39)
--- NOTE | 2018-10-21 18:10 | PDOC H&P ---
History of Present Illness Admission Date/PCP: 10/21/18 11:02 History of Present Illness: YU MERCADO is a 58 year old female, She came to the office today for evaluation of multiple complaints including generalized body pains, constipation, fatigue, Abdominal pain she apparently was in the emergency room on multiple occasions for evaluation of similar symptoms, the last emergency room visit was on October 15, 2018, I retrieved and reviewed the records, she presented to the emergency room for evaluation of abdominal pain in the flank on the right side for the last 6 weeks prior to this visit in the ER she was in the emergency room and she was diagnosed with pyelonephritis. She also was in the emergency room at [facility] at [facility].She was then diagnosed w ith constipation.A CAT scan of the abdomen and pelvis with IV contrast was done on 10/15/2018 the CAT scan demonstrated multiple benign liver cysts also found was a 2.6 cm left upper pole renal cortical cyst and 2.6 cm left midpole renal cortical cysts there was no calcifications. She was also found to have elevated serum calcium, 12.1, in the emergency room she was treated with normal saline and discharged home. Patient was requesting to be admitted to the hospital because she is very fatigued with body pains and constipated she was also found to have severely elevated blood pressure. The serum calcium was 12.9, the serum PTH 294.4this is consistent with primary hyperparathyroidism Past Surgical History Past Surgical History: Reports: Hysterectomy Social History Smoking Status: Never Smoker Frequency of Alcohol Use: None Hx Recreational Drug Use: No Drugs: None Hx Prescription Drug Abuse: No Family History Family History: Reviewed & Not Pertinent Parental Family History Reviewed: Yes Children Family History Reviewed: Yes Sibling(s) Family History Reviewed.: Yes Medication/Allergy Home Medications: Acetaminophen [Tylenol Extra Strength 500 mg Tablet] 500 mg PO Q6HP PRN 10/21/18 Lactulose [Constulose 10 gm/15 mL Oral Solution] 15 ml PO DAILYP PRN 10/21/18 Ondansetron HCl [Zofran 4 mg Tablet] 4 mg PO DAILYP PRN 10/21/18 Allergies/Adverse Reactions: No Known Allergies Allergy (Verified 10/15/18 08:21) Review of Systems Constitutional: PRESENT: fatigue, weakness, weight loss Eyes: ABSENT: visual disturbances Ears: ABSENT: hearing changes Respiratory: ABSENT: cough, hemoptysis Gastrointestinal: PRESENT: constipation Genitourinary: ABSENT: dysuria, hematuria Musculoskeletal: ABSENT: joint swelling Neurological: PRESENT: tingling, weakness Psychiatric: ABSENT: anxiety, depression, homidical ideation, suicidal ideation Endocrine: ABSENT: cold intolerance, heat intolerance, menstrual abnormalities, polydipsia, polyuria Hematologic/Lymphatic: ABSENT: easy bleeding, easy bruising, lymphadenopathy Physical Exam Vital Signs: Temp Pulse Resp BP Pulse Ox 99.1 F 78 17 109/68 100 10/21/18 15:47 10/21/18 15:47 10/21/18 15:47 10/21/18 15:47 10/21/18 15:47 Intake & Output 10/20/18 10/21/18 10/22/18 06:59 06:59 06:59 Weight 54.5 kg General appearance: PRESENT: no acute distress Head exam: PRESENT: atraumatic, normocephalic Eye exam: PRESENT: conjunctiva pink, EOMI, PERRLA Mouth exam: PRESENT: moist, tongue midline Neck exam: PRESENT: full ROM Respiratory exam: PRESENT: clear to auscultation elif Cardiovascular exam: PRESENT: RRR, +S1, +S2 Pulses: PRESENT: normal dorsalis pedis pul, +2 pedal pulses bilateral Vascular exam: PRESENT: normal capillary refill GI/Abdominal exam: PRESENT: normal bowel sounds, soft Rectal exam: PRESENT: deferred Neurological exam: PRESENT: alert, CN II-XII grossly intact Psychiatric exam: PRESENT: appropriate affect, normal mood Skin exam: PRESENT: dry, intact, warm Results Laboratory Results: 10/21/18 12:49 10/21/18 12:49 10/21/18 10/21/18 10/21/18 12:35 12:49 12:49 WBC 3.2 L RBC 4.29 Hgb 12.3 Hct 37.2 MCV 87 MCH 28.6 MCHC 33.0 RDW 14.9 H Plt Count 284 Sodium 136.0 L Potassium 3.8 Chloride 99 Carbon Dioxide 24 Anion Gap 13 BUN 12 Creatinine 0.86 Est GFR ( Amer) > 60 Est GFR (Non-Af Amer) > 60 Glucose 90 Calcium 12.9 H* Total Bilirubin 0.6 AST 41 H ALT 56 H Alkaline Phosphatase 105 Total Protein 8.4 H Albumin 5.0 TSH Free T4 PTH Intact 294.4 H 10/21/18 12:49 WBC RBC Hgb Hct MCV MCH MCHC RDW Plt Count Sodium Potassium Chloride Carbon Dioxide Anion Gap BUN Creatinine Est GFR ( Amer) Est GFR (Non-Af Amer) Glucose Calcium Total Bilirubin AST ALT Alkaline Phosphatase Total Protein Albumin TSH 1.51 Free T4 1.26 PTH Intact Impressions: Chest X-Ray 10/21/18 11:29 IMPRESSION: NO ACUTE RADIOGRAPHIC FINDING IN THE CHEST. Assessment & Plan - Diagnosis (1) Hypercalcemia Is this a current diagnosis for this admission?: Yes Plan: She has symptomatic hypercalcemia, start normal saline, the hypercalcemia is PTH mediated consistent with primary hyperparathyroidism (2) Primary hyperparathyroidism Is this a current diagnosis for this admission?: Yes Plan: She has primary hyperparathyroidism, will obtain nuclear imaging of the parathyroid gland (3) Bone pain Is this a current diagnosis for this admission?: Yes Plan: This is most likely related to the hyperparathyroidism, she probably have osteoporosis/osteopenia (4) Constipation Qualifiers: Constipation type: other constipation type Qualified Code(s): K59.09 - Other constipation Is this a current diagnosis for this admission?: Yes Plan: This is related to the hyperparathyroidism (5) Essential (primary) hypertension Is this a current diagnosis for this admission?: Yes Plan: It seems that she has undiagnosed hypertension, The blood pressure is elevated
[2018-10-21 19:42] LABS: APPEARANCE,URINE SLIGHTLY-CLOUDY; BILIRUBIN,URINE NEGATIVE (NEGATIVE); COLOR,URINE YELLOW; GLUCOSE, URINE NEGATIVE (NEGATIVE); KETONES,URINE 20 mg/dL (NEGATIVE); LEUKOCYTE ESTERASE,URINE NEGATIVE (NEGATIVE); NITRITE,URINE NEGATIVE (NEGATIVE); PROTEIN,URINE NEGATIVE (NEGATIVE); URINE SPECIFIC GRAVITY 1.009; UROBILINOGEN,URINE NEGATIVE mg/dL (<2.0)
[2018-10-22] MEDS: TRAMADOL HCL 50 MG TABLET PO PRN ×4 (03:27→21:19)
[2018-10-22] MEDS: NORMAL SALINE 1000 ML 1,000 ML IV PRN ×2 (03:27→14:30)
--- NOTE | 2018-10-22 09:36 | RADIOLOGY REPORT (SQ) ---
EXAM DESCRIPTION: BONE SURVEY COMPLETE COMPLETED DATE/TIME: 10/22/2018 8:30 am REASON FOR STUDY: bone pain COMPARISON: None. TECHNIQUE: Images of the axial and proximal appendicular skeleton are obtained, along with lateral s kull and frontal chest films. LIMITATIONS: None. FINDINGS: AP CHEST: No bony findings. Lungs are clear. LATERAL SKULL: No worrisome bone lesions. AP BOTH HUMERI: No worrisome bone lesions. TWO-VIEW LUMBAR SPINE: No worrisome bone lesions. TWO-VIEW THORACIC SPINE: No worrisome bone lesions. AP PELVIS: No worrisome bone lesions. AP BOTH FEMURS: No worrisome bone lesions. OTHER: No other significant finding. IMPRESSION: Negative bone survey. Reading location - IP/workstation name: [email or web address]
[2018-10-22] MEDS: ACETAMINOPHEN 325 MG TABLET PO PRN ×3 (10:35→19:26)
[2018-10-22 10:46] LABS: ALANINE AMINOTRANSFERASE 52 U/L (9-52); ALBUMIN 4.1 g/dL (3.5-5.0); ALKALINE PHOSPHATASE 90 U/L (38-126); ANION GAP 9 (5-19); ASPARTATE AMINO TRANSFERASE 37 U/L (14-36); BILIRUBIN,DIRECT 0.2 mg/dL (0.0-0.4); BILIRUBIN,TOTAL 0.4 mg/dL (0.2-1.3); BLOOD UREA NITROGEN 12 mg/dL (7-20); CALCIUM 11.6 mg/dL (8.4-10.2); CARBON DIOXIDE 23 mmol/L (22-30); CHLORIDE 106 mmol/L (98-107); GLUCOSE 97 mg/dL (75-110); POTASSIUM 3.7 mmol/L (3.6-5.0); SODIUM 137.6 mmol/L (137-145); TOTAL PROTEIN 7.1 g/dL (6.3-8.2)
--- NOTE | 2018-10-22 13:13 | RADIOLOGY REPORT (SQ) ---
EXAM DESCRIPTION: NM PARATHYROID IMAGING COMPLETED DATE/TIME: 10/22/2018 12:35 pm REASON FOR STUDY: PRIMARY HYPERPARATHYROIDISM COMPARISON: None. RADIONUCLIDE AND DOSE: 21.9 millicuries Tc-99m Sestamibi. The route of agent administration: Intravenous ADDITIONAL DRUGS AND DOSES: None. TECHNIQUE: Early and delayed images of the neck acquired following radionuclide administration. LIMITATIONS: None. FINDINGS: Thyroid: Normal size. Homogeneous activity. Normal washout. No focal lesions. Parathyroid: On delayed images there is persistent activity inferior to the left lobe of the thyroid. Other: No other significant findings. IMPRESSION: PERSISTENT ACTIVITY INFERIOR TO THE LEFT LOBE OF THE THYROID CONSISTENT WITH A PARATHYRO ID ADENOMA. TECHNICAL DOCUMENTATION: JOB ID: [id number] [employer]- All Rights Reserved Reading location - IP/workstation name: [email or web address]
[2018-10-22 16:39] LABS: A/G RATIO 1.1 (0.7-1.7); ALBUMIN 2 4.1 g/dL (2.9-4.4); ALPHA-2-GLOBULIN 2 0.9 g/dL (0.4-1.0); BETA GLOBULINS 1.2 g/dL (0.7-1.3); GAMMA GLOBULIN 1.5 g/dL (0.4-1.8); GLOBULIN TOTAL 3.8 g/dL (2.2-3.9); MONOCLONAL SPIKE Not Observed g/dL (Not Observ); PROTEIN TOTAL SERUM 7.9 g/dL (6.0-8.5)
[2018-10-22] MEDS: VALSARTAN 160 MG TABLET PO SCH (17:17)
--- NOTE | 2018-10-22 19:55 | PDOC CONSULTATION ---
History of Present Illness Admission Date/PCP: 10/21/18 11:02 Patient complains of: Abdominal pain and weight loss History of Present Illness: YU MERCADO is a 58 year old female presenting with 1 month history of generalized weakness with dizziness with associated upper abdominal pain and flank pain. She has had diminished appetite with nausea and constipation. She has lost about 25 pounds of weight in the past several weeks. Her only past medical history has been kidney stones in the past. No blood per rectum. No hematemesis. No history of alcohol abuse. No family history of endocrine problems. Her dad did have what sounds like lung cancer and kidney cancer. Patient denies any psychiatric problems in the past. No history of peptic ulcer disease. Patient has also noted new onset of constipation in the past several weeks. No emesis however. Past Medical History Medical History: None Renal/ Medical History: Reports: Nephrolithiasis Past Surgical History Past Surgical History: Reports: Hysterectomy, Other - Bilateral ureteral stents Social History Smoking Status: Never Smoker Frequency of Alcohol Use: None Hx Recreational Drug Use: No Drugs: None Hx Prescription Drug Abuse: No Family History Family History: Reviewed & Not Pertinent - No history of endocrine problems Parental Family History Reviewed: Yes - Father with lung cancer and kidney cancer Children Family History Reviewed: Yes Sibling(s) Family History Reviewed.: Yes Medication/Allergy Home Medications: Acetaminophen [Tylenol Extra Strength 500 mg Tablet] 500 mg PO Q6HP PRN 10/21/18 Lactulose [Constulose 10 gm/15 mL Oral Solution] 15 ml PO DAILYP PRN 10/21/18 Ondansetron HCl [Zofran 4 mg Tablet] 4 mg PO DAILYP PRN 10/21/18 Allergies/Adverse Reactions: No Known Allergies Allergy (Verified 10/15/18 08:21) Review of Systems Constitutional: PRESENT: anorexia Gastrointestinal: PRESENT: abdominal pain, constipation Genitourinary: PRESENT: hematuria Musculoskeletal: PRESENT: back pain Physical Exam Vital Signs: Temp Pulse Resp BP Pulse Ox 98.0 F 71 16 173/92 H 100 10/22/18 16:50 10/22/18 16:50 10/22/18 16:50 10/22/18 16:50 10/22/18 16:50 Intake & Output 10/21/18 10/22/18 10/23/18 06:59 06:59 06:59 Intake Total 1979 1899 Output Total 200 Balance 178 190 Weight 54.5 kg 54.5 kg Results Laboratory Results: 10/21/18 12:49 10/22/18 09:18 10/22/18 09:18 Sodium 137.6 Potassium 3.7 Chloride 106 Carbon Dioxide 23 Anion Gap 9 BUN 12 Creatinine 0.83 Est GFR ( Amer) > 60 Est GFR (Non-Af Amer) > 60 Glucose 97 Calcium 11.6 H Total Bilirubin 0.4 AST 37 H ALT 52 Alkaline Phosphatase 90 Total Protein 7.1 Albumin 4.1 Impressions: Chest X-Ray 10/21/18 11:29 IMPRESSION: NO ACUTE RADIOGRAPHIC FINDING IN THE CHEST. Parathyroid Scan Nuclear Medicine 10/22/18 00:00 IMPRESSION: PERSISTENT ACTIVITY INFERIOR TO THE LEFT LOBE OF THE THYROID CONSISTENT WITH A PARATHYROID ADENOMA. Skeletal Survey 10/22/18 00:00 IMPRESSION: Negative bone survey. 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 Patient would benefit from parathyroid adenoma resection. This procedure can be arranged as an outpatient with consultation with Dr. Cooley as an outpatient. (2) Abdominal pain Qualifiers: Abdominal location: epigastric Qualified Code(s): R10.13 - Epigastric pain Plan: Abdominal pain with weight loss and anorexia. Could be related with her hyperparathyroidism but need to exclude other etiologies as well as associated etiologies. Patient is pending a noncontrasted abdominal pelvic CT scan with her history of kidney stones. However we will also ordered a CT with oral and IV contrast afterwards to better image other structures. Patient would benefit from a upper endoscopy during this hospitalization as well. With her history of recent onset constipation, colonoscopy is indicated as well.
[2018-10-22] MEDS: ONDANSETRON 4 MG TAB.RAPDIS PO PRN (21:20)
--- NOTE | 2018-10-22 21:40 | RADIOLOGY REPORT (SQ) ---
EXAM DESCRIPTION: CT ABDOMEN PELVIS WITHOUT IV CONTRAST COMPLETED DATE/TME: 10/22/2018 00:00 CLINICAL HISTORY: 58 years, Female, kidney stone COMPARISON: 10/15/1818 and 09/16/2018 TECHNIQUE: Contiguous axial images of the abdomen and pelvis were obtained without IV contrast followed by reconstruction images. Images stored on PACS. All CT scanners at this facility use dose modulation, iterative reconstruction, and/or weight based dosing when appropriate to reduce radiation dose to as low as reasonably achievable (ALARA). [facility]: Dose Right [facility]: CareDose [facility]: Dose Right [facility]: Teradose 4D [facility]: [employer] LIMITATIONS: None. FINDINGS: Lung bases: Minimal bibasilar subsegmental atelectasis. Liver: Multiple incompletely characterized but stable scattered hypodense foci throughout the liver, largest in the left hepatic lobe measuring 1.8 cm, most likely representing hepatic cysts. Gallbladder/Bile ducts: No radiopaque gallstone. No intra or extrahepatic biliary ductal dilatation. Spleen: Within normal limits. Pancreas: Within normal limits. Adrenal glands: Within normal limits. Kidneys/Bladder: No renal stone or hydronephrosis. An incompletely characterize left upper pole fluid attenuation focus measuring 2.3 cm appears stable when compared to previous studies and most likely representing a simple renal cyst. A previously noted left renal midpole cystic focus is less well delineated in this unenhanced study. Partially contracted bladder without significant finding. No perinephric stranding. GI tract: Small hiatal hernia. No bowel obstruction or active inflammatory process. The appendix is within normal limits. Uterus/adnexa: Uterus is not identified. No suspicious adnexal lesion. Scattered punctate pelvic phleboliths are noted. Vascular structures: Limited evaluation in this unenhanced study. Non aneurysmal abdominal aorta.A stable 4 mm calcific focus anterior to the right psoas muscle (series 3 image 54) possibly representing calcification within the right ovarian vein versus a calcified lymph node. Free fluid: No free fluid. Lymph nodes: No lymphadenopathy. Soft tissues: Within normal limits. Bones: No acute osseous finding. IMPRESSION: Negative for nephrolithiasis or hydronephrosis. TECHNICAL DOCUMENTATION: Quality ID # 436: Final reports with documentation of one or more dose reduction techniques (e.g., Automated exposure control, adjustment of the mA and/or kV according to patient size, use of iterative reconstruction technique) copyright 2011 [employer]- All Rights Reserved
[2018-10-22] MEDS ORDERED: NORMAL SALINE 1000 ML 1,000 ML IV ONE (21:45)
--- NOTE | 2018-10-22 21:55 | PDOC PROGRESS REPORT ---
Subjective Progress Note for:: 10/22/18 Subjective:: She complain of flank pain, kidney stone was suspected especially with hypercalcemia, the nuclear imaging of the parathyroid gland confirm parathyroid adenoma, CT scan for kidney stone protocol was obtained negative for kidney stone consult was obtained from the surgeon because of the primary hyperparathyroidism Reason For Visit: SYMPTOMATIC HYPERCALCEMIA, HTN Physical Exam Vital Signs: Temp Pulse Resp BP Pulse Ox 97 F L 81 15 194/99 H 99 10/22/18 21:35 10/22/18 21:35 10/22/18 21:35 10/22/18 21:35 10/22/18 21:35 Intake & Output 10/21/18 10/22/18 10/23/18 06:59 06:59 06:59 Intake Total 1980 1900 Output Total 200 Balance 1780 1900 Weight 54.5 kg 54.5 kg General appearance: PRESENT: no acute distress Head exam: PRESENT: atraumatic, normocephalic Eye exam: PRESENT: PERRLA Ear exam: PRESENT: normal external ear exam Neck exam: PRESENT: full ROM Respiratory exam: PRESENT: clear to auscultation elif Cardiovascular exam: PRESENT: RRR, +S1, +S2 Vascular exam: PRESENT: normal capillary refill GI/Abdominal exam: PRESENT: normal bowel sounds, soft Rectal exam: PRESENT: deferred Neurological exam: PRESENT: alert, awake, oriented to person, oriented to place, oriented to time, oriented to situation, CN II-XII grossly intact Psychiatric exam: PRESENT: appropriate affect, normal mood Skin exam: PRESENT: dry, intact, warm Results Laboratory Results: 10/21/18 12:49 10/22/18 09:18 10/22/18 09:18 Sodium 137.6 Potassium 3.7 Chloride 106 Carbon Dioxide 23 Anion Gap 9 BUN 12 Creatinine 0.83 Est GFR ( Amer) > 60 Est GFR (Non-Af Amer) > 60 Glucose 97 Calcium 11.6 H Total Bilirubin 0.4 AST 37 H ALT 52 Alkaline Phosphatase 90 Total Protein 7.1 Albumin 4.1 Impressions: Chest X-Ray 10/21/18 11:29 IMPRESSION: NO ACUTE RADIOGRAPHIC FINDING IN THE CHEST. Abdomen/Pelvis CT 10/22/18 00:00 IMPRESSION: Negative for nephrolithiasis or hydronephrosis. TECHNICAL DOCUMENTATION: Quality ID # 436: Final reports with documentation of one or more dose reduction techniques (e.g., Automated exposure control, adjustment of the mA and/or kV according to patient size, use of iterative reconstruction technique) copyright 2011 [employer]- All Rights Reserved Parathyroid Scan Nuclear Medicine 10/22/18 00:00 IMPRESSION: PERSISTENT ACTIVITY INFERIOR TO THE LEFT LOBE OF THE THYROID CONSISTENT WITH A PARATHYROID ADENOMA. Skeletal Survey 10/22/18 00:00 IMPRESSION: Negative bone survey. Assessment & Plan - Diagnosis (1) Hypercalcemia Is this a current diagnosis for this admission?: Yes (2) Primary hyperparathyroidism Is this a current diagnosis for this admission?: Yes (3) Bone pain Is this a current diagnosis for this admission?: Yes (4) Constipation Qualifiers: Constipation type: other constipation type Qualified Code(s): K59.09 - Other constipation Is this a current diagnosis for this admission?: Yes (5) Essential (primary) hypertension Is this a current diagnosis for this admission?: Yes
[2018-10-22] MEDS ORDERED: AMLODIPINE BESYLATE 10 MG TABLET PO ONE (23:00)
[2018-10-23] MEDS: ACETAMINOPHEN 325 MG TABLET PO PRN ×5 (00:12→23:56)
--- NOTE | 2018-10-23 00:26 | RADIOLOGY REPORT (SQ) ---
EXAM DESCRIPTION: CT ABDOMEN PELVIS WITH IV CONTRAST COMPLETED DATE/TME: 10/22/2018 00:00 CLINICAL HISTORY: 58 years, Female, abdominal pain. CREAT 0.83 COMPARISON: Prior CT from today's date TECHNIQUE: 577 Images stored on PACS. All CT scanners at this facility use dose modulation, iterative reconstruction, and/or weight based dosing when appropriate to reduce radiation dose to as low as reasonably achievable (ALARA). [facility]: Dose Right [facility]: CareDose [facility]: Dose Right [facility]: Teradose 4D [facility]: [employer] LIMITATIONS: None. FINDINGS: Limited evaluation lung bases is unremarkable. Osseous structures are grossly intact. Fatty infiltrative change to the liver. Multiple small hepatic cysts are present. The spleen, adrenal glands, pancreas, are unremarkable. Simple partially exophytic left renal cyst measuring 2.2 x 2.2 cm. The kidneys are otherwise unremarkable. Gallbladder is present. No evidence for bowel obstruction. Normal appendix. No free air or free fluid. Abundant stool in the colon. IMPRESSION: Negative for acute intra-abdominal/pelvic process. Hepatic and left renal cysts. Abundant stool in the colon. Fatty infiltrative change to the liver. TECHNICAL DOCUMENTATION: Quality ID # 436: Final reports with documentation of one or more dose reduction techniques (e.g., Automated exposure control, adjustment of the mA and/or kV according to patient size, use of iterative reconstruction technique) copyright 2011 [employer]- All Rights Reserved
[2018-10-23] MEDS: TRAMADOL HCL 50 MG TABLET PO PRN ×4 (03:15→21:35)
[2018-10-23] MEDS: NORMAL SALINE 1000 ML 1,000 ML IV PRN ×2 (03:18→13:15)
[2018-10-23 06:58] LABS: ALANINE AMINOTRANSFERASE 36 U/L (9-52); ALBUMIN 3.8 g/dL (3.5-5.0); ALKALINE PHOSPHATASE 75 U/L (38-126); ANION GAP 10 (5-19); ASPARTATE AMINO TRANSFERASE 32 U/L (14-36); BILIRUBIN,DIRECT 0.3 mg/dL (0.0-0.4); BILIRUBIN,TOTAL 0.4 mg/dL (0.2-1.3); BLOOD UREA NITROGEN 5 mg/dL (7-20); CALCIUM 10.9 mg/dL (8.4-10.2); CARBON DIOXIDE 23 mmol/L (22-30); CHLORIDE 105 mmol/L (98-107); GLUCOSE 89 mg/dL (75-110); POTASSIUM 3.5 mmol/L (3.6-5.0); SODIUM 137.8 mmol/L (137-145); TOTAL PROTEIN 6.3 g/dL (6.3-8.2)
[2018-10-23] MEDS: AMLODIPINE BESYLATE 10 MG TABLET PO SCH (09:30)
--- NOTE | 2018-10-23 10:25 | PDOC PROGRESS REPORT ---
Subjective Progress Note for:: 10/23/18 Subjective:: no c/o, severe constipation Reason For Visit: SYMPTOMATIC HYPERCALCEMIA, HTN Physical Exam Vital Signs: Temp Pulse Resp BP Pulse Ox 97.8 F 86 17 138/84 H 100 10/23/18 08:39 10/23/18 08:39 10/23/18 08:39 10/23/18 08:39 10/23/18 08:39 Intake & Output 10/22/18 10/23/18 10/24/18 06:59 06:59 06:59 Intake Total 1980 4262 Output Total 200 750 Balance 1780 3512 Weight 54.5 kg 54.5 kg General appearance: PRESENT: no acute distress Respiratory exam: PRESENT: clear to auscultation elif Cardiovascular exam: PRESENT: RRR GI/Abdominal exam: PRESENT: soft Results Laboratory Results: 10/21/18 12:49 10/23/18 06:05 10/22/18 10/23/18 09:18 06:05 Sodium 137.6 137.8 Potassium 3.7 3.5 L Chloride 106 105 Carbon Dioxide 23 23 Anion Gap 9 10 BUN 12 5 L Creatinine 0.83 0.66 Est GFR ( Amer) > 60 > 60 Est GFR (Non-Af Amer) > 60 > 60 Glucose 97 89 Calcium 11.6 H 10.9 H Total Bilirubin 0.4 0.4 AST 37 H 32 ALT 52 36 Alkaline Phosphatase 90 75 Total Protein 7.1 6.3 Albumin 4.1 3.8 Impressions: Chest X-Ray 10/21/18 11:29 IMPRESSION: NO ACUTE RADIOGRAPHIC FINDING IN THE CHEST. Abdomen/Pelvis CT 10/22/18 00:00 IMPRESSION: Negative for acute intra-abdominal/pelvic process. Hepatic and left renal cysts. Abundant stool in the colon. Fatty infiltrative change to the liver. TECHNICAL DOCUMENTATION: Quality ID # 436: Final reports with documentation of one or more dose reduction techniques (e.g., Automated exposure control, adjustment of the mA and/or kV according to patient size, use of iterative reconstruction technique) copyright 2011 [employer]- All Rights Reserved Parathyroid Scan Nuclear Medicine 10/22/18 00:00 IMPRESSION: PERSISTENT ACTIVITY INFERIOR TO THE LEFT LOBE OF THE THYROID CONSISTENT WITH A PARATHYROID ADENOMA. Skeletal Survey 10/22/18 00:00 IMPRESSION: Negative bone survey. Assessment & Plan - Diagnosis (1) Constipation Qualifiers: Constipation type: unspecified constipation type Qualified Code(s): K59.00 - Constipation, unspecified Is this a current diagnosis for this admission?: Yes (2) Essential (primary) hypertension Is this a current diagnosis for this admission?: Yes (3) Primary hyperparathyroidism Is this a current diagnosis for this admission?: Yes - Plan Summary Plan Summary: A/ Constipation, severe Hypercalcemia, secondary to parathyroid adenoma H/H P/ Clear liquid diet NPO after midnight IVF 150 mL/hr Mg Citrate 1 bottle now Golytely bowel prep Dulcolax po 40 mg Consent for colonoscopy tomorrow Procedure, risks, benefits, complications discussed with patient, she understands, and decides to proceed.
[2018-10-23] MEDS ORDERED: MAGNESIUM CITRATE 296 ML BOTTLE PO ONE (11:30)
[2018-10-23] MEDS: ONDANSETRON 4 MG TAB.RAPDIS PO PRN (15:08)
[2018-10-23 15:38] LABS: M-SPIKE % UR Not Observed % (Not Observ); PROTEIN TOTAL URINE 10.8 mg/dL (Not Estab.)
[2018-10-23] MEDS ORDERED: BISACODYL 5 MG TABEC PO ONE (16:00)
[2018-10-23] MEDS ORDERED: PEG 3350/NA SULF,BICARB,CL/KCL 4000 ML PO PRN (16:00)
[2018-10-23] MEDS: VALSARTAN 160 MG TABLET PO SCH (17:43)
[2018-10-23] MEDS ORDERED: ONDANSETRON HCL INJ/PF 4 MG/2 ML SDV ONE (18:42)
[2018-10-24] MEDS: NORMAL SALINE 1000 ML 1,000 ML IV PRN ×2 (04:10→15:44)
[2018-10-24] MEDS: TRAMADOL HCL 50 MG TABLET PO PRN ×3 (05:19→22:11)
[2018-10-24] MEDS: ONDANSETRON HCL INJ/PF 4 MG/2 ML SDV IV PRN ×2 (05:19→15:33)
[2018-10-24] MEDS ORDERED: ONDANSETRON HCL INJ/PF 4 MG/2 ML SDV ONE (07:45)
[2018-10-24] MEDS ORDERED: DIPHENHYDRAMINE HCL 50 MG/ML VIAL ONE (07:45)
[2018-10-24] MEDS ORDERED: NALOXONE HCL INJ/PF 0.4 MG/1 ML SDV ONE (07:45)
[2018-10-24] MEDS ORDERED: FLUMAZENIL INJ 0.5 MG/5 ML VIAL ONE (07:45)
[2018-10-24] MEDS ORDERED: EPINEPHRINE INJ 1 MG/10 ML DISP.SYRIN ONE (07:46)
[2018-10-24] MEDS ORDERED: GLUCAGON,HUMAN RECOMB 1 MG INJ ONE (07:46)
[2018-10-24] MEDS: MIDAZOLAM 2 MG/2 ML INJ ONE ×5 (08:10→08:29)
[2018-10-24] MEDS: FENTANYL CITRATE INJ/PF 100 MCG/2 ML AMPUL ONE ×4 (08:12→08:38)
--- NOTE | 2018-10-24 08:52 | Operative Report ---
Nonrecallable Operative Report DATE OF SURGERY: 10/24/18 PREOPERATIVE DIAGNOSIS: chronic constipation. Hypercalcemia POSTOPERATIVE DIAGNOSIS: same, negative colonosocpy to cecum; redundant colon OPERATION: colonosocpy to cecum SURGEON: LSETER SHAY ANESTHESIA: Moderate Sedation - provided by Dr. Shay: 6 mg IVP Versed; 125 mcg IVP Fentanyl TISSUE REMOVED OR ALTERED: n/a COMPLICATIONS: none ESTIMATED BLOOD LOSS: n/a INTRAOPERATIVE FINDINGS: redundant colon PROCEDURE: see dictation
[2018-10-24] MEDS: AMLODIPINE BESYLATE 10 MG TABLET PO SCH (09:44)
--- NOTE | 2018-10-24 15:43 | OPERATIVE REPORT E ---
Operative Report NAME: YU MERCADO : 1960 AGE: 58Y DATE OF SURGERY: ROOM: 425 PREOPERATIVE DIAGNOSIS: Constipation. POSTOPERATIVE DIAGNOSES: 1. Constipation. 2. Negative colonoscopy. PROCEDURE: Colonoscopy to cecum. SURGEON: LESTER SHAY M.D. ANESTHESIA: IV sedation provided by Dr. Shay, 6 mg of Versed and 125 mcg of Fentanyl. FLUIDS: 300. INDICATIONS AND FINDINGS: A 58-year-old female with a history of constipation. A decision was made to perform a colonoscopy. Procedures, benefits, complications explained to the patient. She understands. Her questions answered, she decided to proceed. DESCRIPTION OF PROCEDURE: The procedure was in the procedure room. The patient was placed in a lateral decubitus position. Anesthesia provided as above. The colonoscope was inserted through the rectum. It was advanced through the colon up to the cecum. Preparation was good. No masses, polyps tumor, mucosal changes, abnormalities were noted. When the instrument reached the cecum the instrument was slowly withdrawn and, again, no abnormalities were noted. At the level of the rectum the instrument was then retroflexed and no lesions were noted as well. At this point the instrument was removed and the patient tolerated the procedure well and transferred to recovery room in satisfactory condition. DICTATING PHYSICIAN: LESTER SHAY M.D. [id number] PHY#: [id number] ID: [id number] JOB#: [id number] ACCT: [id number] cc:LESTER SHAY M.D. > MTDD
[2018-10-24 16:48] LABS: ALANINE AMINOTRANSFERASE 42 U/L (9-52); ALBUMIN 4.1 g/dL (3.5-5.0); ALKALINE PHOSPHATASE 80 U/L (38-126); ANION GAP 11 (5-19); ASPARTATE AMINO TRANSFERASE 34 U/L (14-36); BILIRUBIN,DIRECT 0.3 mg/dL (0.0-0.4); BILIRUBIN,TOTAL 0.5 mg/dL (0.2-1.3); CALCIUM 11.1 mg/dL (8.4-10.2); CARBON DIOXIDE 25 mmol/L (22-30); CHLORIDE 98 mmol/L (98-107); GLUCOSE 97 mg/dL (75-110); SODIUM 133.7 mmol/L (137-145); TOTAL PROTEIN 6.8 g/dL (6.3-8.2)
[2018-10-24 16:50] LABS: BLOOD UREA NITROGEN < 2 mg/dL (7-20)
[2018-10-24 16:52] LABS: POTASSIUM 2.7 mmol/L (3.6-5.0)
[2018-10-24] MEDS: POTASSIUM CHLORIDE 10 MEQ CAPSULE.ER PO SCH ×2 (17:26→22:11)
[2018-10-24] MEDS: ACETAMINOPHEN 325 MG TABLET PO PRN (17:26)
[2018-10-24] MEDS: VALSARTAN 160 MG TABLET PO SCH (17:26)
--- NOTE | 2018-10-24 17:52 | PDOC PROGRESS REPORT ---
Subjective Progress Note for:: 10/24/18 Subjective:: Patient was seen by the bedside, she had colonoscopy done today which was normal Reason For Visit: SYMPTOMATIC HYPERCALCEMIA, HTN Physical Exam Vital Signs: Temp Pulse Resp BP Pulse Ox 100.4 F 87 18 132/77 H 99 10/24/18 14:47 10/24/18 14:47 10/24/18 14:47 10/24/18 14:47 10/24/18 14:47 Intake & Output 10/23/18 10/24/18 10/25/18 06:59 06:59 07:59 Intake Total 4262 3545 1974 Output Total 750 Balance 3512 3545 1974 Weight 54.5 kg 55.6 kg General appearance: PRESENT: no acute distress Eye exam: PRESENT: PERRLA Respiratory exam: PRESENT: clear to auscultation elif Cardiovascular exam: PRESENT: +S1, +S2 Neurological exam: PRESENT: alert Results Laboratory Results: 10/21/18 12:49 10/24/18 16:10 10/24/18 16:10 Sodium 133.7 L Potassium 2.7 L* Chloride 98 Carbon Dioxide 25 Anion Gap 11 BUN < 2 L Creatinine 0.69 Est GFR ( Amer) > 60 Est GFR (Non-Af Amer) > 60 Glucose 97 Calcium 11.1 H Total Bilirubin 0.5 AST 34 ALT 42 Alkaline Phosphatase 80 Total Protein 6.8 Albumin 4.1 Impressions: Chest X-Ray 10/21/18 11:29 IMPRESSION: NO ACUTE RADIOGRAPHIC FINDING IN THE CHEST. Abdomen/Pelvis CT 10/22/18 00:00 IMPRESSION: Negative for acute intra-abdominal/pelvic process. Hepatic and left renal cysts. Abundant stool in the colon. Fatty infiltrative change to the liver. TECHNICAL DOCUMENTATION: Quality ID # 436: Final reports with documentation of one or more dose reduction techniques (e.g., Automated exposure control, adjustment of the mA and/or kV according to patient size, use of iterative reconstruction technique) copyright 2011 [employer]- All Rights Reserved Parathyroid Scan Nuclear Medicine 10/22/18 00:00 IMPRESSION: PERSISTENT ACTIVITY INFERIOR TO THE LEFT LOBE OF THE THYROID CONSISTENT WITH A PARATHYROID ADENOMA. Skeletal Survey 10/22/18 00:00 IMPRESSION: Negative bone survey. Assessment & Plan - Diagnosis (1) Hypercalcemia Is this a current diagnosis for this admission?: Yes (2) Primary hyperparathyroidism Is this a current diagnosis for this admission?: Yes (3) Bone pain Is this a current diagnosis for this admission?: Yes (4) Essential (primary) hypertension Is this a current diagnosis for this admission?: Yes (5) Hypokalemia Is this a current diagnosis for this admission?: Yes Plan: Replace potassium
[2018-10-25] MEDS: POTASSIUM CHLORIDE 10 MEQ CAPSULE.ER PO SCH (03:13)
[2018-10-25] MEDS: NORMAL SALINE 1000 ML 1,000 ML IV PRN ×2 (06:35→16:39)
[2018-10-25] MEDS: TRAMADOL HCL 50 MG TABLET PO PRN ×3 (06:35→19:46)
[2018-10-25] MEDS: AMLODIPINE BESYLATE 10 MG TABLET PO SCH (09:27)
--- NOTE | 2018-10-25 12:16 | PDOC PROGRESS REPORT ---
Subjective Progress Note for:: 10/25/18 Subjective:: Patient seen by the bedside, she is somewhat better, Dr. Cooley will be back tomorrow,, the colonoscopy was negative for any mass lesion Reason For Visit: SYMPTOMATIC HYPERCALCEMIA, HTN Physical Exam Vital Signs: Temp Pulse Resp BP Pulse Ox 98.8 F 93 14 136/83 H 100 10/25/18 07:38 10/25/18 08:54 10/25/18 07:38 10/25/18 07:38 10/25/18 07:38 Intake & Output 10/24/18 10/25/18 10/26/18 05:59 06:59 06:59 Intake Total Output Total Balance Weight General appearance: PRESENT: no acute distress Eye exam: PRESENT: PERRLA Respiratory exam: PRESENT: clear to auscultation elif Cardiovascular exam: PRESENT: +S1, +S2 GI/Abdominal exam: PRESENT: soft Neurological exam: PRESENT: alert Results Laboratory Results: 10/21/18 12:49 10/24/18 16:10 Sodium 133.7 L Potassium 2.7 L* Chloride 98 Carbon Dioxide 25 Anion Gap 11 BUN < 2 L Creatinine 0.69 Est GFR ( Amer) > 60 Est GFR (Non-Af Amer) > 60 Glucose 97 Calcium 11.1 H Total Bilirubin 0.5 AST 34 ALT 42 Alkaline Phosphatase 80 Total Protein 6.8 Albumin 4.1 Impressions: Chest X-Ray 10/21/18 11:29 IMPRESSION: NO ACUTE RADIOGRAPHIC FINDING IN THE CHEST. Abdomen/Pelvis CT 10/22/18 00:00 IMPRESSION: Negative for acute intra-abdominal/pelvic process. Hepatic and left renal cysts. Abundant stool in the colon. Fatty infiltrative change to the liver. TECHNICAL DOCUMENTATION: Quality ID # 436: Final reports with documentation of one or more dose reduction techniques (e.g., Automated exposure control, adjustment of the mA and/or kV according to patient size, use of iterative reconstruction technique) copyright 2011 [employer]- All Rights Reserved Parathyroid Scan Nuclear Medicine 10/22/18 00:00 IMPRESSION: PERSISTENT ACTIVITY INFERIOR TO THE LEFT LOBE OF THE THYROID CONSISTENT WITH A PARATHYROID ADENOMA. Skeletal Survey 10/22/18 00:00 IMPRESSION: Negative bone survey. Assessment & Plan - Diagnosis (1) Hypercalcemia Is this a current diagnosis for this admission?: Yes Plan: Continue hydration with normal saline (2) Primary hyperparathyroidism Is this a current diagnosis for this admission?: Yes Plan: This is due to parathyroid adenoma (3) Bone pain Is this a current diagnosis for this admission?: Yes (4) Essential (primary) hypertension Is this a current diagnosis for this admission?: Yes (5) Hypokalemia Is this a current diagnosis for this admission?: Yes (6) Parathyroid adenoma Is this a current diagnosis for this admission?: Yes
[2018-10-25 12:28] LABS: ALANINE AMINOTRANSFERASE 42 U/L (9-52); ALBUMIN 4.1 g/dL (3.5-5.0); ALKALINE PHOSPHATASE 83 U/L (38-126); ANION GAP 9 (5-19); ASPARTATE AMINO TRANSFERASE 34 U/L (14-36); BILIRUBIN,DIRECT 0.2 mg/dL (0.0-0.4); BILIRUBIN,TOTAL 0.4 mg/dL (0.2-1.3); BLOOD UREA NITROGEN 3 mg/dL (7-20); CALCIUM 11.4 mg/dL (8.4-10.2); CARBON DIOXIDE 23 mmol/L (22-30); CHLORIDE 104 mmol/L (98-107); GLUCOSE 96 mg/dL (75-110); SODIUM 136.1 mmol/L (137-145); TOTAL PROTEIN 7.1 g/dL (6.3-8.2)
[2018-10-25] MEDS: CHOLECALCIFEROL (D3) 400 UNIT TABLET PO SCH (12:49)
[2018-10-25] MEDS: ACETAMINOPHEN 325 MG TABLET PO PRN (16:38)
[2018-10-25] MEDS: VALSARTAN 160 MG TABLET PO SCH (17:04)
[2018-10-26] MEDS: TRAMADOL HCL 50 MG TABLET PO PRN ×4 (02:33→22:16)
[2018-10-26] MEDS: ACETAMINOPHEN 325 MG TABLET PO PRN ×3 (04:39→19:53)
[2018-10-26] MEDS: CHOLECALCIFEROL (D3) 400 UNIT TABLET PO SCH (09:23)
[2018-10-26] MEDS: AMLODIPINE BESYLATE 10 MG TABLET PO SCH (09:23)
[2018-10-26] MEDS: NORMAL SALINE 1000 ML 1,000 ML IV PRN ×2 (12:52→22:16)
[2018-10-26] MEDS: VALSARTAN 160 MG TABLET PO SCH (17:23)
[2018-10-26] MEDS ORDERED: GLUCAGON,HUMAN RECOMB 1 MG INJ SUBCUT PRN (21:49)
[2018-10-26] MEDS ORDERED: DEXTROSE 40% GEL 15 GM TUBE PO PRN ×2 (21:49)
[2018-10-26] MEDS ORDERED: DEXTROSE 50%-WATER 25 GM/50 ML DISP.SYRIN IV PRN ×2 (21:49)
--- NOTE | 2018-10-26 22:21 | PDOC PROGRESS REPORT ---
Subjective Progress Note for:: 10/26/18 Subjective:: Patient was seen today by the bedside, she was seen today by Dr. Cooley the endocrine surgeon Reason For Visit: SYMPTOMATIC HYPERCALCEMIA, HTN Physical Exam Vital Signs: Temp Pulse Resp BP Pulse Ox 98.2 F 85 15 138/91 H 100 10/26/18 20:00 10/26/18 20:00 10/26/18 20:00 10/26/18 20:00 10/26/18 20:00 Intake & Output 10/25/18 10/26/18 10/27/18 06:59 06:59 06:59 Intake Total 3166 1709 Output Total 1 Balance 3166 1708 Weight 54.7 kg 54.7 kg General appearance: PRESENT: no acute distress Eye exam: PRESENT: PERRLA Respiratory exam: PRESENT: clear to auscultation elif Cardiovascular exam: PRESENT: +S1, +S2 GI/Abdominal exam: PRESENT: soft Neurological exam: PRESENT: alert Results Laboratory Results: 10/21/18 12:49 10/25/18 11:42 Impressions: Chest X-Ray 10/21/18 11:29 IMPRESSION: NO ACUTE RADIOGRAPHIC FINDING IN THE CHEST. Abdomen/Pelvis CT 10/22/18 00:00 IMPRESSION: Negative for acute intra-abdominal/pelvic process. Hepatic and left renal cysts. Abundant stool in the colon. Fatty infiltrative change to the liver. TECHNICAL DOCUMENTATION: Quality ID # 436: Final reports with documentation of one or more dose reduction techniques (e.g., Automated exposure control, adjustment of the mA and/or kV according to patient size, use of iterative reconstruction technique) copyright 2011 [employer]- All Rights Reserved Parathyroid Scan Nuclear Medicine 10/22/18 00:00 IMPRESSION: PERSISTENT ACTIVITY INFERIOR TO THE LEFT LOBE OF THE THYROID CONSISTENT WITH A PARATHYROID ADENOMA. Skeletal Survey 10/22/18 00:00 IMPRESSION: Negative bone survey. Assessment & Plan - Diagnosis (1) Hypercalcemia Is this a current diagnosis for this admission?: Yes (2) Primary hyperparathyroidism Is this a current diagnosis for this admission?: Yes (3) Bone pain Is this a current diagnosis for this admission?: Yes (4) Essential (primary) hypertension Is this a current diagnosis for this admission?: Yes (5) Hypokalemia Is this a current diagnosis for this admission?: Yes (6) Parathyroid adenoma Is this a current diagnosis for this admission?: Yes
[2018-10-26 23:15] LABS: ALANINE AMINOTRANSFERASE 38 U/L (9-52); ALBUMIN 3.9 g/dL (3.5-5.0); ALKALINE PHOSPHATASE 79 U/L (38-126); ANION GAP 10 (5-19); ASPARTATE AMINO TRANSFERASE 33 U/L (14-36); BILIRUBIN,DIRECT 0.2 mg/dL (0.0-0.4); BILIRUBIN,TOTAL 0.4 mg/dL (0.2-1.3); BLOOD UREA NITROGEN 6 mg/dL (7-20); CALCIUM 11.2 mg/dL (8.4-10.2); CARBON DIOXIDE 23 mmol/L (22-30); CHLORIDE 100 mmol/L (98-107); GLUCOSE 115 mg/dL (75-110); POTASSIUM 3.6 mmol/L (3.6-5.0); SODIUM 132.5 mmol/L (137-145); TOTAL PROTEIN 6.8 g/dL (6.3-8.2)
[2018-10-27] MEDS: TRAMADOL HCL 50 MG TABLET PO PRN ×3 (04:27→20:14)
--- NOTE | 2018-10-27 05:28 | CONSULTATION REPORT E ---
Consultation Report NAME: YU MERCADO : 1960 AGE: 58Y DATE: 10/26/2018 425 A TO: MANJIT COOLEY M.D. FROM: ZELDA SANDERSON M.D. Requesting Physician INTERVAL HISTORY: The patient is a 58-year-old -[place] female with a history of recurrent gallstones, chronic abdominal pain. No history of peptic ulcers. Hospitalized for abdominal pain. Workup revealed hypercalcemia. This was 11.6 to 11.4. PTH level 294. Sestamibi scan showed localization in the left lower neck below the thyroid gland consistent with parathyroid adenoma. Surgery was consulted. In the interim, the patient has had improvement in her overall symptoms, but she still has diminished appetite, nausea, and constipation. She has had unexplained weight loss the past several weeks. PAST MEDICAL AND SURGICAL HISTORY: Can be found in history and physical document. FAMILY HISTORY: Noncontributory. SOCIAL HISTORY: The patient does not smoke. ALLERGIES: None known. PHYSICAL EXAMINATION: The patient is examined on the 4th floor of [facility]. GENERAL: No acute distress. EYES: No evidence of icterus. NECK: No adenopathy. LUNGS: Clear to auscultation bilaterally. HEART: Without murmur or gallop. ABDOMEN: Soft. No peritoneal signs. No rigidity. IMPRESSION: 1. Hypercalcemia with hyperparathyroidism consistent with hyperparathyroid adenoma. 2. Nephrolithiasis. DISCUSSION: 1. The patient underwent a colonoscopy by Dr. Gregorio 2 days ago. Findings were significant for no pathology. She has not had an upper endoscopy. 2. At bedside tonight, Dr. Cooley performed focused ultrasound of the neck. This revealed shotty adenopathy compartment 2 and 3 left neck, and smaller adenopathy right neck. 3. The thyroid gland itself is slightly enlarged, left greater than right, with multi small nodules and cysts. 4. Just inferior to the left thyroid lobe pole is an oblong shaped, 1 x 3 cm, smooth, homogeneous, well-circumscribed horizontally-oriented mass. Photos taken. No increased blood flow. The findings are suspicious for parathyroid adenoma. RECOMMENDATIONS: 1. Will keep the patient n.p.o. in anticipation of upper endoscopy tomorrow to further evaluate patient's abdominal pain. 2. Will consider interval parathyroidectomy. The above has been discussed with the patient. We believe she understands and agrees to proceed. DICTATING PHYSICIAN: MANJIT COOLEY M.D. [id number] PHY#: [id number] ID: [id number] JOB#: [id number] ACCT: [id number] cc:MANJIT COOLEY M.D. >
[2018-10-27] MEDS ORDERED: DIPHENHYDRAMINE HCL 50 MG/ML VIAL ONE (07:23)
[2018-10-27] MEDS ORDERED: ONDANSETRON HCL INJ/PF 4 MG/2 ML SDV ONE (07:23)
[2018-10-27] MEDS ORDERED: NALOXONE HCL INJ/PF 0.4 MG/1 ML SDV ONE (07:23)
[2018-10-27] MEDS ORDERED: FENTANYL CITRATE INJ/PF 100 MCG/2 ML AMPUL ONE (07:23)
[2018-10-27] MEDS ORDERED: FLUMAZENIL INJ 0.5 MG/5 ML VIAL ONE (07:23)
[2018-10-27] MEDS ORDERED: GLUCAGON,HUMAN RECOMB 1 MG INJ ONE (07:24)
[2018-10-27] MEDS ORDERED: EPINEPHRINE INJ 1 MG/10 ML DISP.SYRIN ONE (07:24)
[2018-10-27] MEDS: MIDAZOLAM 2 MG/2 ML INJ ONE ×3 (08:09→08:20)
--- NOTE | 2018-10-27 08:34 | Operative Report ---
Nonrecallable Operative Report DATE OF SURGERY: 10/27/18 PREOPERATIVE DIAGNOSIS: hypercalcemia, abdominal pain POSTOPERATIVE DIAGNOSIS: hypercalcemia,abdominal pain OPERATION: esophago-gastroduodenosocopy SURGEON: STU DIAZ ANESTHESIA: Moderate Sedation TISSUE REMOVED OR ALTERED: none COMPLICATIONS: none ESTIMATED BLOOD LOSS: 0 INTRAOPERATIVE FINDINGS: diffused gastritis. see dictation PROCEDURE: see dictation
--- NOTE | 2018-10-27 09:13 | OPERATIVE REPORT E ---
Operative Report NAME: YU MERCADO : 1960 AGE: 58Y DATE OF SURGERY: 10/27/2018 ROOM: 425 PREOPERATIVE DIAGNOSES: 1. Hypercalcemia. 2. Abdominal pain. POSTOPERATIVE DIAGNOSES: 1. Hypercalcemia. 2. Abdominal pain. OPERATIVE PROCEDURE: Esophagogastroduodenoscopy. SURGEON: STU DIAZ M.D. ANESTHESIA: IV sedation. INDICATIONS FOR OPERATION: This is a 58-year-old female who presented with diffuse abdominal pain, weight loss, and hypercalcemia. She has had multiple complaints of generalized body pains, constipation, fatigue. Her abdominal pain brought her into the emergency room on multiple occasions. She has had a previous history of pyelonephritis. She was also seen in the Emergency Room at [facility] in [place]. She was then diagnosed with constipation. CAT scan of the abdomen and pelvis with IV contrast done on 10/15 demonstrated multiple benign liver cysts and a 2.6 cm left upper pole cortical cyst and a 2.6 cm left mid pole renal cortical cyst. She was also noted to have a calcium of 12.1. She was treated for that and she was discharged home. On admission her laboratories showed a serum calcium of 12.9 and a PTH of 294, which was consistent with primary hyperparathyroidism. She underwent a colonoscopy for her abdominal pain which did not have a significant finding other than a redundant colon. She is now going to undergo an upper endoscopy for the epigastric abdominal pain. PROCEDURE: The patient was brought to the endoscopy suite awake, alert, in stable condition, placed on the procedure gurney and given IV sedation. She was initially given Versed and Fentanyl for the procedure. After adequate anesthesia an appropriate time out was called and the procedure ensued. The Olympus gastroscope was easily passed into the posterior pharynx, identifying the vocal cords and the epiglottis, and then passed into the upper esophagus. Traversing down the upper esophagus to the GE junction noted no evidence of any pathology in the esophagus. As we reached the cardia of the stomach we started noticing diffuse punctate ecchymoses consistent with diffuse gastritis. This was present throughout the entire stomach, including the fundus, the antrum, the body, and the lesser curvature. We identified the pylorus. There was no evidence of any prepyloric ulcers. As we passed through the duodenal bulb there was no evidence of any ulcers in the duodenum. We entered the duodenum and the mucosa appeared to be normal. As we withdrew we performed a J maneuver and looked at the GE junction. There was no evidence of any hiatal hernia. We then slowly withdrew the scope and completed the procedure. IMPRESSION: Diffuse gastritis. DISPOSITION: The patient tolerated the procedure well and will return to recovery in stable condition. DICTATING PHYSICIAN: STU DIAZ M.D. [id number] Y#: [id number] ID: [id number] JOB#: [id number] ACCT: [id number] cc:STU DIAZ M.D. >
[2018-10-27] MEDS: AMLODIPINE BESYLATE 10 MG TABLET PO SCH (09:51)
[2018-10-27] MEDS: CHOLECALCIFEROL (D3) 400 UNIT TABLET PO SCH (09:51)
[2018-10-27] MEDS: NORMAL SALINE 1000 ML 1,000 ML IV PRN ×2 (15:05→23:49)
[2018-10-27] MEDS: ACETAMINOPHEN 325 MG TABLET PO PRN ×2 (16:14→23:49)
[2018-10-27] MEDS: VALSARTAN 160 MG TABLET PO SCH (17:11)
--- NOTE | 2018-10-27 19:13 | PDOC PROGRESS REPORT ---
Subjective Progress Note for:: 10/27/18 Subjective:: Patient was seen by the bedside, she was seen today by Dr. Cooley, parathyroid surgery is planned for tomorrow .She had EGD done today Reason For Visit: SYMPTOMATIC HYPERCALCEMIA, HTN Physical Exam Vital Signs: Temp Pulse Resp BP Pulse Ox 98.5 F 97 18 133/79 H 100 10/27/18 11:37 10/27/18 14:00 10/27/18 11:37 10/27/18 11:37 10/27/18 11:37 Intake & Output 10/26/18 10/27/18 10/28/18 06:59 06:59 06:59 Intake Total 3165 2028 2229 Output Total 1 Balance 3165 2027 2229 Weight 54.7 kg 55.2 kg General appearance: PRESENT: no acute distress Eye exam: PRESENT: PERRLA Respiratory exam: PRESENT: clear to auscultation elif Cardiovascular exam: PRESENT: +S1, +S2 GI/Abdominal exam: PRESENT: soft Neurological exam: PRESENT: alert Results Laboratory Results: 10/21/18 12:49 10/26/18 22:43 10/26/18 22:43 Sodium 132.5 L Potassium 3.6 Chloride 100 Carbon Dioxide 23 Anion Gap 10 BUN 6 L Creatinine 0.62 Est GFR ( Amer) > 60 Est GFR (Non-Af Amer) > 60 Glucose 115 H Calcium 11.2 H Total Bilirubin 0.4 AST 33 ALT 38 Alkaline Phosphatase 79 Total Protein 6.8 Albumin 3.9 Impressions: Chest X-Ray 10/21/18 11:29 IMPRESSION: NO ACUTE RADIOGRAPHIC FINDING IN THE CHEST. Abdomen/Pelvis CT 10/22/18 00:00 IMPRESSION: Negative for acute intra-abdominal/pelvic process. Hepatic and left renal cysts. Abundant stool in the colon. Fatty infiltrative change to the liver. TECHNICAL DOCUMENTATION: Quality ID # [id number]: Final reports with documentation of one or more dose reduction techniques (e.g., Automated exposure control, adjustment of the mA and/or kV according to patient size, use of iterative reconstruction technique) copyright 2011 [employer]- All Rights Reserved Parathyroid Scan Nuclear Medicine 10/22/18 00:00 IMPRESSION: PERSISTENT ACTIVITY INFERIOR TO THE LEFT LOBE OF THE THYROID CONSISTENT WITH A PARATHYROID ADENOMA. Skeletal Survey 10/22/18 00:00 IMPRESSION: Negative bone survey. Assessment & Plan - Diagnosis (1) Hypercalcemia Is this a current diagnosis for this admission?: Yes (2) Primary hyperparathyroidism Is this a current diagnosis for this admission?: Yes (3) Bone pain Is this a current diagnosis for this admission?: Yes (4) Essential (primary) hypertension Is this a current diagnosis for this admission?: Yes (5) Hypokalemia Is this a current diagnosis for this admission?: Yes (6) Parathyroid adenoma Is this a current diagnosis for this admission?: Yes Plan: Plan for surgery
[2018-10-27] MEDS ORDERED: NA PHOS,M-B/NA PHOS,DI-BA (ADULT) 133 ML ENEMA PR PRN (19:55)
[2018-10-28] MEDS ORDERED: CEFAZOLIN 1 GM/D5W RTU 1 GM/50 ML RTUPB IV PRN (05:00)
[2018-10-28] MEDS: TRAMADOL HCL 50 MG TABLET PO PRN (05:06)
[2018-10-28] MEDS: ONDANSETRON HCL INJ/PF 4 MG/2 ML SDV IV PRN (07:48)
[2018-10-28] MEDS: ACETAMINOPHEN 325 MG TABLET PO PRN (07:48)
[2018-10-28] MEDS: AMLODIPINE BESYLATE 10 MG TABLET PO SCH (09:21)
[2018-10-28] MEDS: NORMAL SALINE 1000 ML 1,000 ML IV PRN (09:59)
[2018-10-28] MEDS: CHOLECALCIFEROL (D3) 400 UNIT TABLET PO SCH (10:00)
[2018-10-28] MEDS ORDERED: MICROFIBRILLAR COLLAGEN 1 GM PACK ONE (10:30)
[2018-10-28 11:30] LABS: ABSOLUTE EOSINOPHILS # (AUTO) 0.1 10^3/uL (0.0-0.6); ABSOLUTE LYMPHOCYTES (AUTO) 0.7 10^3/uL (0.5-4.7); ABSOLUTE MONOCYTES (AUTO) 0.3 10^3/uL (0.1-1.4); ABSOLUTE NEUT (AUTO) 1.2 10^3/uL (1.7-8.2); EOSINOPHILS % (AUTO) 3.6 % (0-6); HEMATOCRIT 32.6 % (36.0-47.0); HEMOGLOBIN 10.9 g/dL (12.0-15.5); LYMPHOCYTES % (AUTO) 30.3 % (13-45); MEAN CORPUSCULAR HEMOGLOBIN 28.9 pg (27.0-33.4); MEAN CORPUSCULAR HGB CONC 33.3 g/dL (32.0-36.0); MEAN CORPUSCULAR VOLUME 87 fl (80-97); MONOCYTES % (AUTO) 12.3 % (3-13); PLATELET COUNT 230 10^3/uL (150-450); RED BLOOD COUNT 3.76 10^6/uL (3.72-5.28); RED CELL DISTRIBUTION WIDTH 15.2 % (11.5-14.0); SEGMENTED NEUTROPHILS % (AUTO) 52.8 % (42-78); TOTAL CELLS COUNTED % (AUTO) 100 %; WHITE BLOOD COUNT 2.3 10^3/uL (4.0-10.5)
[2018-10-28 11:46] LABS: ALANINE AMINOTRANSFERASE 46 U/L (9-52); ALBUMIN 3.8 g/dL (3.5-5.0); ALKALINE PHOSPHATASE 81 U/L (38-126); ANION GAP 10 (5-19); ASPARTATE AMINO TRANSFERASE 30 U/L (14-36); BILIRUBIN,DIRECT 0.2 mg/dL (0.0-0.4); BILIRUBIN,TOTAL 0.4 mg/dL (0.2-1.3); BLOOD UREA NITROGEN 6 mg/dL (7-20); CALCIUM 11.2 mg/dL (8.4-10.2); CARBON DIOXIDE 23 mmol/L (22-30); CHLORIDE 103 mmol/L (98-107); GLUCOSE 89 mg/dL (75-110); POTASSIUM 3.2 mmol/L (3.6-5.0); SODIUM 135.7 mmol/L (137-145); TOTAL PROTEIN 6.4 g/dL (6.3-8.2)
[2018-10-28] MEDS: POTASSI CL 20 MEQ/50 ML RIDER 20 MEQ/50 ML RTUPB IV SCH ×2 (13:20→18:32)
[2018-10-28] MEDS ORDERED: HYDROMORPHONE HCL INJ/PF 2 MG/ML AMPULE ONE (13:49)
[2018-10-28] MEDS ORDERED: FENTANYL CITRATE INJ/PF 100 MCG/2 ML AMPUL ONE (13:49)
[2018-10-28] MEDS ORDERED: PROPOFOL INJ 200 MG/20 ML VIAL IV ONE (13:49)
[2018-10-28] MEDS ORDERED: MIDAZOLAM 2 MG/2 ML INJ ONE (13:49)
[2018-10-28] MEDS ORDERED: ACETAMINOPHEN 1,000 MG/100 ML RTUPB IV ONE (13:49)
[2018-10-28] MEDS ORDERED: ONDANSETRON HCL INJ/PF 4 MG/2 ML SDV ONE (14:56)
[2018-10-28] MEDS ORDERED: KETOROLAC TROMETHAMINE 60 MG/2 ML SDV ONE (14:56)
[2018-10-28] MEDS ORDERED: SUCCINYLCHOLINE CHLORIDE INJ 200 MG/10 ML VIAL ONE (14:56)
[2018-10-28] MEDS ORDERED: DEXAMETHASONE SOD PHOSPHATE INJ 4 MG/1 ML VIAL ONE (14:56)
[2018-10-28] MEDS ORDERED: LIDOCAINE 1%/EPINEPHRINE INJ 20 ML VIAL ONE (15:21)
[2018-10-28] MEDS ORDERED: PROMETHAZINE HCL INJ 25 MG/1 ML VIAL IV PRN (15:27)
[2018-10-28] MEDS ORDERED: DIPHENHYDRAMINE HCL 50 MG/ML VIAL IV PRN (15:27)
[2018-10-28] MEDS ORDERED: MEPERIDINE HCL/PF INJ 25 MG/1 ML DISP.SYRIN IV PRN (15:27)
[2018-10-28] MEDS ORDERED: FENTANYL CITRATE INJ/PF 100 MCG/2 ML AMPUL IV PRN ×3 (15:27)
[2018-10-28] MEDS ORDERED: MORPHINE SULFATE 10 MG/ML INJ IV PRN (15:27)
[2018-10-28] MEDS ORDERED: ONDANSETRON HCL INJ/PF 4 MG/2 ML SDV IV PRN (15:27)
--- NOTE | 2018-10-28 16:41 | Operative Report ---
Nonrecallable Operative Report DATE OF SURGERY: 10/28/18 PREOPERATIVE DIAGNOSIS: Hypercalcemia secondary to hyperparathyroidism secondary to thyroid adenoma left neck POSTOPERATIVE DIAGNOSIS: Same OPERATION: Neck exploration with left lower pole parathyroid adenoma resection using intraoperative ultrasound SURGEON: MANJIT ROSENTHAL JOY LOADING MACHINE OPERATOR: KIM MCKEON ANESTHESIA: GA TISSUE REMOVED OR ALTERED: 1 parathyroid adenoma COMPLICATIONS: None ESTIMATED BLOOD LOSS: Scant INTRAOPERATIVE FINDINGS: See below PROCEDURE: Patient was taken to the main operating room at [facility] where she underwent general anesthesia. Arms were tucked, being bag placed between the shoulder blades, and the neck and head hyperextended. The neck was then prepped and draped in sterile fashion. Surgical plan surgical timeout were conducted. Real-time ultrasonography with the variable frequency linear transducer was performed. Findings were significant for a grossly normal thyroid gland, and a hypoechoic 3cm mass in the left neck lateral to the inferior pole of the left lobe of the thyroid gland, and medial to the left carotid artery. The skin was anesthetized with 1% lidocaine without epinephrine. A standard trans-cervical lower midline anterior neck incision was made with a #10 blade. It was approximately 6 cm long. Superior and inferior skin and platysma flaps were raised. Using intraoperative ultrasonography as a guide, the density suspicious for the adenoma. We mobilized the sternothyroid and sternohyoid strap muscles laterally. There is some scar tissue in this area consistent with possible previous line placement. The scar tissue was teased apart, we opened up the deeper layer of tissue with the carotid artery swept laterally. Again using ultrasound as a guide, we came right down to the adenoma which was vertically oriented oblong shaped parallel to the midportion of the left lobe of the thyroid gland. We teased it out from its surrounding fatty pocket and eventually suspended it on its vascular pedicle which was solitary and coming from the cephalad end of the gland. The pedicle was taken down and components between small clips and 4-0 Vicryl ties. Intraoperative photography was performed. The specimen was taken off to the back table and photographed with a ruler and found to be 1 x 3 cm. It was taken out to Dr. Gaxiola pathologist where frozen section was performed with the results demonstrating hypercellular parathyroid gland consistent with adenoma; it weighed in at 1.47 g We checked the vascular pedicle intraoperatively it was secure. We felt that the operation was complete. The decision was made preoperatively to explore and remove the left lower neck adenoma with the assumption that the patient had a solitary adenoma given the high preoperative concordant imaging including sestamibi scan and ultrasonography. The strap muscles were approximated midline with multiple 2 -0 Vicryl sutures in the platysma and skin reconstructed with 3-0 Vicryl sutures. Skin glue was applied. Neck was taken out of extension, patient tolerated procedure well, extubated, and taken recovery in stable condition.
[2018-10-28] MEDS ORDERED: KETOROLAC TROMETHAMINE 10 MG TABLET PO PRN (16:45)
--- NOTE | 2018-10-28 17:25 | PDOC PROGRESS REPORT ---
Subjective Progress Note for:: 10/28/18 Subjective:: Patient had parathyroid adenoma resected today Reason For Visit: SYMPTOMATIC HYPERCALCEMIA, HTN Physical Exam Vital Signs: Temp Pulse Resp BP Pulse Ox 97.9 F 93 23 H 147/86 H 100 10/28/18 16:36 10/28/18 16:36 10/28/18 16:36 10/28/18 16:36 10/28/18 16:36 Intake & Output 10/27/18 10/28/18 10/29/18 06:59 06:59 06:59 Intake Total 2028 3463 1500 Output Total 1 500 Balance 2027 3463 1000 Weight 55.2 kg 56.3 kg General appearance: PRESENT: no acute distress Eye exam: PRESENT: PERRLA Respiratory exam: PRESENT: clear to auscultation elif Cardiovascular exam: PRESENT: +S1, +S2 GI/Abdominal exam: PRESENT: soft Neurological exam: PRESENT: alert Results Laboratory Results: 10/28/18 10:47 10/28/18 10:47 10/28/18 10/28/18 10:47 10:47 WBC 2.3 L RBC 3.76 Hgb 10.9 L Hct 32.6 L MCV 87 MCH 28.9 MCHC 33.3 RDW 15.2 H Plt Count 230 Seg Neutrophils % 52.8 Lymphocytes % 30.3 Monocytes % 12.3 Eosinophils % 3.6 Basophils % 1.0 Absolute Neutrophils 1.2 L Absolute Lymphocytes 0.7 Absolute Monocytes 0.3 Absolute Eosinophils 0.1 Absolute Basophils 0.0 Sodium 135.7 L Potassium 3.2 L Chloride 103 Carbon Dioxide 23 Anion Gap 10 BUN 6 L Creatinine 0.62 Est GFR ( Amer) > 60 Est GFR (Non-Af Amer) > 60 Glucose 89 Calcium 11.2 H Total Bilirubin 0.4 AST 30 ALT 46 Alkaline Phosphatase 81 Total Protein 6.4 Albumin 3.8 Impressions: Chest X-Ray 10/21/18 11:29 IMPRESSION: NO ACUTE RADIOGRAPHIC FINDING IN THE CHEST. Abdomen/Pelvis CT 10/22/18 00:00 IMPRESSION: Negative for acute intra-abdominal/pelvic process. Hepatic and left renal cysts. Abundant stool in the colon. Fatty infiltrative change to the liver. TECHNICAL DOCUMENTATION: Quality ID # 436: Final reports with documentation of one or more dose reduction techniques (e.g., Automated exposure control, adjustment of the mA and/or kV according to patient size, use of iterative reconstruction technique) copyright 2011 [employer]- All Rights Reserved Parathyroid Scan Nuclear Medicine 10/22/18 00:00 IMPRESSION: PERSISTENT ACTIVITY INFERIOR TO THE LEFT LOBE OF THE THYROID CONSISTENT WITH A PARATHYROID ADENOMA. Skeletal Survey 10/22/18 00:00 IMPRESSION: Negative bone survey. Assessment & Plan - Diagnosis (1) Hypercalcemia Is this a current diagnosis for this admission?: Yes (2) Primary hyperparathyroidism Is this a current diagnosis for this admission?: Yes (3) Bone pain Is this a current diagnosis for this admission?: Yes (4) Essential (primary) hypertension Is this a current diagnosis for this admission?: Yes (5) Hypokalemia Is this a current diagnosis for this admission?: Yes (6) Parathyroid adenoma Is this a current diagnosis for this admission?: Yes
[2018-10-28] MEDS: VALSARTAN 160 MG TABLET PO SCH (18:31)
--- NOTE | 2018-10-28 19:30 | EKG REPORT ---
SEVERITY:- ABNORMAL ECG - SINUS RHYTHM LEFT ANTERIOR FASCICULAR BLOCK LEFT VENTRICULAR HYPERTROPHY BORDERLINE T ABNORMALITIES, INFERIOR LEADS BORDERLINE PROLONGED QT INTERVAL : Confirmed by: Bjorn Hanna MD 28-Oct-2018 19:29:49
[2018-10-29] MEDS ORDERED: CEFAZOLIN 1 GM/D5W RTU 1 GM/50 ML RTUPB IV PRN (08:00)
[2018-10-29] MEDS ORDERED: MIDAZOLAM 2 MG/2 ML INJ ONE (08:01)
[2018-10-29] MEDS ORDERED: PROMETHAZINE HCL INJ 25 MG/1 ML VIAL ONE (08:01)
[2018-10-29] MEDS ORDERED: FENTANYL CITRATE INJ/PF 100 MCG/2 ML AMPUL ONE (08:01)
[2018-10-29] MEDS ORDERED: ONDANSETRON HCL INJ/PF 4 MG/2 ML SDV ONE (08:01)
[2018-10-29] MEDS ORDERED: DEXAMETHASONE SOD PHOSPHATE INJ 4 MG/1 ML VIAL ONE (08:01)
[2018-10-29] MEDS ORDERED: ACETAMINOPHEN 1,000 MG/100 ML RTUPB IV ONE (08:02)
[2018-10-29] MEDS ORDERED: PROPOFOL INJ 200 MG/20 ML VIAL IV ONE (08:02)
[2018-10-29] MEDS: NORMAL SALINE 1000 ML 1,000 ML IV PRN ×2 (08:05→14:18)
[2018-10-29] MEDS ORDERED: BUPIVACAINE HCL 0.25 % INJ/PF (2.5 MG/1 ML) 30 ML VIAL ONE (08:09)
[2018-10-29] MEDS ORDERED: LIDOCAINE 0.5% INJ-PF (5 MG/ML) 50 ML SDV ONE (08:09)
[2018-10-29] MEDS ORDERED: CEFAZOLIN INJ 1 GM VIAL ONE (08:41)
--- NOTE | 2018-10-29 09:50 | PDOC PROGRESS REPORT ---
Subjective Reason For Visit: SYMPTOMATIC HYPERCALCEMIA, HTN Physical Exam Vital Signs: Temp Pulse Resp BP Pulse Ox 97.5 F 96 14 147/90 H 98 10/29/18 08:15 10/29/18 08:15 10/29/18 08:15 10/29/18 08:15 10/29/18 08:15 Pulse Oximeter Continuous Start: 10/28/18 22:52 Freq: RTQ4 Status: Active Protocol: Document 10/29/18 09:13 DBE (Rec: 10/29/18 09:13 DBE [id number]) Pulse Oximetry Assessment Equipment Usage Equipment Standby Continuous SpO2 Machine # 5 Additional RT Notes Other PATIENT NOT IN ROOM Intake & Output 10/28/18 10/29/18 10/30/18 06:59 06:59 06:59 Intake Total 3463 4190 0 Output Total 510 0 Balance 3463 3680 0 Weight 56.3 kg 56.3 kg Results Laboratory Results: 10/28/18 10:47 10/28/18 10:47 10/28/18 10/28/18 10/28/18 10:47 10:47 22:29 WBC 2.3 L RBC 3.76 Hgb 10.9 L Hct 32.6 L MCV 87 MCH 28.9 MCHC 33.3 RDW 15.2 H Plt Count 230 Seg Neutrophils % 52.8 Lymphocytes % 30.3 Monocytes % 12.3 Eosinophils % 3.6 Basophils % 1.0 Absolute Neutrophils 1.2 L Absolute Lymphocytes 0.7 Absolute Monocytes 0.3 Absolute Eosinophils 0.1 Absolute Basophils 0.0 Sodium 135.7 L Potassium 3.2 L Chloride 103 Carbon Dioxide 23 Anion Gap 10 BUN 6 L Creatinine 0.62 Est GFR ( Amer) > 60 Est GFR (Non-Af Amer) > 60 Glucose 89 Calcium 11.2 H 11.4 H Total Bilirubin 0.4 AST 30 ALT 46 Alkaline Phosphatase 81 Total Protein 6.4 Albumin 3.8 PTH Intact 10/29/18 10/29/18 05:24 05:24 WBC RBC Hgb Hct MCV MCH MCHC RDW Plt Count Seg Neutrophils % Lymphocytes % Monocytes % Eosinophils % Basophils % Absolute Neutrophils Absolute Lymphocytes Absolute Monocytes Absolute Eosinophils Absolute Basophils Sodium Potassium Chloride Carbon Dioxide Anion Gap BUN Creatinine Est GFR ( Amer) Est GFR (Non-Af Amer) Glucose Calcium 11.0 H Total Bilirubin AST ALT Alkaline Phosphatase Total Protein Albumin PTH Intact 4.2 L Impressions: Chest X-Ray 10/21/18 11:29 IMPRESSION: NO ACUTE RADIOGRAPHIC FINDING IN THE CHEST. Abdomen/Pelvis CT 10/22/18 00:00 IMPRESSION: Negative for acute intra-abdominal/pelvic process. Hepatic and left renal cysts. Abundant stool in the colon. Fatty infiltrative change to the liver. TECHNICAL DOCUMENTATION: Quality ID # 436: Final reports with documentation of one or more dose reduction techniques (e.g., Automated exposure control, adjustment of the mA and/or kV according to patient size, use of iterative reconstruction technique) copyright 2011 [employer]- All Rights Reserved Parathyroid Scan Nuclear Medicine 10/22/18 00:00 IMPRESSION: PERSISTENT ACTIVITY INFERIOR TO THE LEFT LOBE OF THE THYROID CONSISTENT WITH A PARATHYROID ADENOMA. Skeletal Survey 10/22/18 00:00 IMPRESSION: Negative bone survey. Assessment & Plan - Plan Summary Plan Summary: 58-year-old female status post parathyroidectomy yesterday for primary hyperparathyroidism. Patient had a coughing episode last night and had a small hematoma arise in the neck. The hematoma has slowly expanded. I have recommended the patient undergo operative exploration with evacuation of the hematoma and ligation of any bleeding vessels. The patient has agreed to this. Risks/benefits discussed, informed consent obtained, and all questions answered.
[2018-10-29] MEDS ORDERED: DIPHENHYDRAMINE HCL 50 MG/ML VIAL IV PRN (09:52)
[2018-10-29] MEDS ORDERED: PROMETHAZINE HCL INJ 25 MG/1 ML VIAL IV PRN ×2 (09:52)
[2018-10-29] MEDS ORDERED: FENTANYL CITRATE INJ/PF 100 MCG/2 ML AMPUL IV PRN ×2 (09:52)
[2018-10-29] MEDS ORDERED: MEPERIDINE HCL/PF INJ 25 MG/1 ML DISP.SYRIN IV PRN (09:52)
[2018-10-29] MEDS ORDERED: MORPHINE SULFATE 10 MG/ML INJ IV PRN (09:52)
[2018-10-29] MEDS: MORPHINE SULFATE 10 MG/ML INJ IV PRN (11:33)
[2018-10-29] MEDS ORDERED: SUCCINYLCHOLINE CHLORIDE INJ 200 MG/10 ML VIAL ONE (12:13)
[2018-10-29] MEDS: CHOLECALCIFEROL (D3) 400 UNIT TABLET PO SCH (14:17)
[2018-10-29] MEDS: AMLODIPINE BESYLATE 10 MG TABLET PO SCH (14:17)
[2018-10-29] MEDS: VALSARTAN 160 MG TABLET PO SCH (17:33)
--- NOTE | 2018-10-29 22:31 | PDOC PROGRESS REPORT ---
Subjective Progress Note for:: 10/29/18 Subjective:: Patient was seen today by the bedside ,she had neck hematoma that was drained today Reason For Visit: SYMPTOMATIC HYPERCALCEMIA, HTN Physical Exam Vital Signs: Temp Pulse Resp BP Pulse Ox 98.0 F 96 16 120/74 100 10/29/18 20:00 10/29/18 20:00 10/29/18 20:00 10/29/18 20:00 10/29/18 20:00 Pulse Oximeter Continuous Start: 10/28/18 22:52 Freq: RTQ4 Status: Active Protocol: Document 10/29/18 19:35 LDA (Rec: 10/29/18 19:36 LDA [id number]) Pulse Oximetry Assessment Oxygen Saturation (92-100) 98 Oxygen Delivery Method Room Air Fraction of Inspired Oxygen (FIO2) 21 Equipment Usage Equipment in Use Continuous SpO2 Machine # 5 Intake & Output 10/28/18 10/29/18 10/30/18 06:59 06:59 06:59 Intake Total 3463 4190 1422 Output Total 510 30 Balance 3463 3680 1392 Weight 56.3 kg 56.3 kg 56.3 kg General appearance: PRESENT: no acute distress Eye exam: PRESENT: PERRLA Respiratory exam: PRESENT: clear to auscultation elif Cardiovascular exam: PRESENT: +S1, +S2 GI/Abdominal exam: PRESENT: soft Results Laboratory Results: 10/28/18 10:47 10/28/18 10:47 10/28/18 10/29/18 10/29/18 22:29 05:24 05:24 Calcium 11.4 H 11.0 H PTH Intact 4.2 L Impressions: Chest X-Ray 10/21/18 11:29 IMPRESSION: NO ACUTE RADIOGRAPHIC FINDING IN THE CHEST. Abdomen/Pelvis CT 10/22/18 00:00 IMPRESSION: Negative for acute intra-abdominal/pelvic process. Hepatic and left renal cysts. Abundant stool in the colon. Fatty infiltrative change to the liver. TECHNICAL DOCUMENTATION: Quality ID # 436: Final reports with documentation of one or more dose reduction techniques (e.g., Automated exposure control, adjustment of the mA and/or kV according to patient size, use of iterative reconstruction technique) copyright 2011 [employer]- All Rights Reserved Parathyroid Scan Nuclear Medicine 10/22/18 00:00 IMPRESSION: PERSISTENT ACTIVITY INFERIOR TO THE LEFT LOBE OF THE THYROID CONSISTENT WITH A PARATHYROID ADENOMA. Skeletal Survey 10/22/18 00:00 IMPRESSION: Negative bone survey. Assessment & Plan - Diagnosis (1) Hypercalcemia Is this a current diagnosis for this admission?: Yes (2) Primary hyperparathyroidism Is this a current diagnosis for this admission?: Yes (3) Bone pain Is this a current diagnosis for this admission?: Yes (4) Essential (primary) hypertension Is this a current diagnosis for this admission?: Yes (5) Hypokalemia Is this a current diagnosis for this admission?: Yes (6) Parathyroid adenoma Is this a current diagnosis for this admission?: Yes (7) Hematoma of neck Qualifiers: Encounter type: initial encounter Qualified Code(s): S10.93XA - Contusion of unspecified part of neck, initial encounter Is this a current diagnosis for this admission?: Yes
[2018-10-30] MEDS: ACETAMINOPHEN 325 MG TABLET PO PRN ×2 (04:39→13:07)
[2018-10-30] MEDS: NORMAL SALINE 1000 ML 1,000 ML IV PRN ×2 (04:39→14:43)
[2018-10-30 08:32] LABS: ABSOLUTE MONOCYTES (AUTO) 0.5 10^3/uL (0.1-1.4); ABSOLUTE NEUT (AUTO) 4.6 10^3/uL (1.7-8.2); BASOPHILS % (AUTO) 0.3 % (0-2); HEMATOCRIT 28.2 % (36.0-47.0); HEMOGLOBIN 9.7 g/dL (12.0-15.5); LYMPHOCYTES % (AUTO) 16.8 % (13-45); MEAN CORPUSCULAR HEMOGLOBIN 29.3 pg (27.0-33.4); MEAN CORPUSCULAR HGB CONC 34.5 g/dL (32.0-36.0); MEAN CORPUSCULAR VOLUME 85 fl (80-97); MONOCYTES % (AUTO) 8.2 % (3-13); PLATELET COUNT 230 10^3/uL (150-450); RED BLOOD COUNT 3.32 10^6/uL (3.72-5.28); RED CELL DISTRIBUTION WIDTH 15.7 % (11.5-14.0); SEGMENTED NEUTROPHILS % (AUTO) 74.7 % (42-78); TOTAL CELLS COUNTED % (AUTO) 100 %
[2018-10-30 08:34] LABS: WHITE BLOOD COUNT 6.1 10^3/uL (4.0-10.5)
[2018-10-30 08:50] LABS: ALANINE AMINOTRANSFERASE 33 U/L (9-52); ALBUMIN 3.6 g/dL (3.5-5.0); ALKALINE PHOSPHATASE 76 U/L (38-126); ANION GAP 12 (5-19); ASPARTATE AMINO TRANSFERASE 24 U/L (14-36); BILIRUBIN,DIRECT 0.3 mg/dL (0.0-0.4); BILIRUBIN,TOTAL 0.4 mg/dL (0.2-1.3); BLOOD UREA NITROGEN 14 mg/dL (7-20); CALCIUM 9.5 mg/dL (8.4-10.2); CARBON DIOXIDE 18 mmol/L (22-30); CHLORIDE 111 mmol/L (98-107); GLUCOSE 86 mg/dL (75-110); POTASSIUM 3.2 mmol/L (3.6-5.0); SODIUM 141.2 mmol/L (137-145); TOTAL PROTEIN 6.2 g/dL (6.3-8.2)
[2018-10-30] MEDS: CHOLECALCIFEROL (D3) 400 UNIT TABLET PO SCH (09:31)
[2018-10-30] MEDS: AMLODIPINE BESYLATE 10 MG TABLET PO SCH (09:31)
[2018-10-30] MEDS: ONDANSETRON HCL INJ/PF 4 MG/2 ML SDV IV PRN (09:31)
[2018-10-30] MEDS: TRAMADOL HCL 50 MG TABLET PO PRN ×2 (09:39→22:18)
[2018-10-30] MEDS ORDERED: POTASSI CL 20 MEQ/50 ML RIDER 20 MEQ/50 ML RTUPB IV ONE (15:30)
[2018-10-30] MEDS: VALSARTAN 160 MG TABLET PO SCH (19:02)
--- NOTE | 2018-10-30 19:59 | PDOC PROGRESS REPORT ---
Subjective Progress Note for:: 10/30/18 Subjective:: pains at the ant neck incision site Reason For Visit: SYMPTOMATIC HYPERCALCEMIA, HTN Physical Exam Vital Signs: Temp Pulse Resp BP Pulse Ox 98.1 F 90 16 124/75 100 10/30/18 15:40 10/30/18 15:40 10/30/18 15:40 10/30/18 15:40 10/30/18 17:07 Pulse Oximeter Continuous Start: 10/28/18 22:52 Freq: RTQ4 Status: Active Protocol: Document 10/30/18 17:07 [facility] (Rec: 10/30/18 17:08 [facility] [id number]) Pulse Oximetry Assessment Oxygen Saturation (92-100) 100 Oxygen Delivery Method Room Air Fraction of Inspired Oxygen (FIO2) 21 Equipment Usage Equipment in Use Continuous SpO2 Machine # 5 Intake & Output 10/29/18 10/30/18 10/31/18 06:59 06:59 06:59 Intake Total 4190 2902 2082 Output Total 510 30 Balance 3680 2872 2082 Weight 56.3 kg 56.3 kg Exam: Neck incision site with just minimal swelling but printing grey cloth tender. No bleeding noted Results Laboratory Results: 10/30/18 07:24 10/30/18 07:24 10/30/18 10/30/18 07:24 07:24 WBC 6.1 D RBC 3.32 L Hgb 9.7 L Hct 28.2 L MCV 85 MCH 29.3 MCHC 34.5 RDW 15.7 H Plt Count 230 Seg Neutrophils % 74.7 Lymphocytes % 16.8 Monocytes % 8.2 Eosinophils % 0.0 Basophils % 0.3 Absolute Neutrophils 4.6 Absolute Lymphocytes 1.0 Absolute Monocytes 0.5 Absolute Eosinophils 0.0 Absolute Basophils 0.0 Sodium 141.2 Potassium 3.2 L Chloride 111 H Carbon Dioxide 18 L Anion Gap 12 BUN 14 Creatinine 0.77 Est GFR ( Amer) > 60 Est GFR (Non-Af Amer) > 60 Glucose 86 Calcium 9.5 Total Bilirubin 0.4 AST 24 ALT 33 Alkaline Phosphatase 76 Total Protein 6.2 L Albumin 3.6 Impressions: Chest X-Ray 10/21/18 11:29 IMPRESSION: NO ACUTE RADIOGRAPHIC FINDING IN THE CHEST. Abdomen/Pelvis CT 10/22/18 00:00 IMPRESSION: Negative for acute intra-abdominal/pelvic process. Hepatic and left renal cysts. Abundant stool in the colon. Fatty infiltrative change to the liver. TECHNICAL DOCUMENTATION: Quality ID # 436: Final reports with documentation of one or more dose reduction techniques (e.g., Automated exposure control, adjustment of the mA and/or kV according to patient size, use of iterative reconstruction technique) copyright 2011 [employer]- All Rights Reserved Parathyroid Scan Nuclear Medicine 10/22/18 00:00 IMPRESSION: PERSISTENT ACTIVITY INFERIOR TO THE LEFT LOBE OF THE THYROID CONSISTENT WITH A PARATHYROID ADENOMA. Skeletal Survey 10/22/18 00:00 IMPRESSION: Negative bone survey. Assessment & Plan - Time Time Spent with patient: 15-24 minutes - Plan Summary Plan Summary: Post evacuation of hematoma yesterday after post parathyroidectomy 10/28/18. Patient had coughing spell which triggered the hematoma. Hb today is 9.7 with WBC 6.1 Ca 9.5 Plan: Continue monitor labs in am prior to eventual discharge
--- NOTE | 2018-10-30 20:00 | PDOC DISCHARGE SUMMARY ---
General - Admit/Disc Date/PCP Admission Date/Primary Care Provider: 10/21/18 11:02 Discharge Date: 10/31/18 - Discharge Diagnosis (1) Hypercalcemia Is this a current diagnosis for this admission?: Yes (2) Primary hyperparathyroidism Is this a current diagnosis for this admission?: Yes (3) Bone pain Is this a current diagnosis for this admission?: Yes (4) Essential (primary) hypertension Is this a current diagnosis for this admission?: Yes (5) Hypokalemia Is this a current diagnosis for this admission?: Yes (6) Parathyroid adenoma Is this a current diagnosis for this admission?: Yes (7) Hematoma of neck Is this a current diagnosis for this admission?: Yes - Additional Information Resuscitation Status: Full Code Prescriptions: Valsartan [Diovan 160 mg Tablet] 320 mg PO QPM #30 tablet Home Medications: Acetaminophen [Tylenol Extra Strength 500 mg Tablet] 500 mg PO Q6HP PRN 10/21/18 Valsartan [Diovan 160 mg Tablet] 320 mg PO QPM #30 tablet 10/30/18 History of Present Illness History of Present Illness: YU MERCADO is a 58 year old female, She came to the office today for evaluation of multiple complaints including generalized body pains, constipation, fatigue, Abdominal pain she apparently was in the emergency room on multiple occasions for evaluation of similar symptoms, the last emergency room visit was on October 15, 2018, I retrieved and reviewed the records, she presented to the emergency room for evaluation of abdominal pain in the flank on the right side for the last 6 weeks prior to this visit in the ER she was in the emergency room and she was diagnosed with pyelonephritis. She also was in the emergency room at [facility] [place].She was then diagnosed with constipation.A CAT scan of the abdomen and pelvis with IV contrast was done on 10/15/2018 the CAT scan demonstrated multiple benign liver cysts also found was a 2.6 cm left upper pole renal cortical cyst and 2.6 cm left midpole renal cortical cysts there was no calcifications. She was also found to have elevated serum calcium, 12.1, in the emergency room she was treated with normal saline and discharged home. Patient was requesting to be admitted to the hospital because she is very fatigued with body pains and constipated she was also found to have severely elevated blood pressure. The serum calcium was 12.9, the serum PTH 294.4this is consistent with primary hyperparathyroidism Hospital Course Hospital Course: Patient was admitted for the management of severe symptomatic hypercalcemia, she has severe constipation, abdominal pain, weight loss, the serum calcium was over 12 she was treated with normal saline despite treatment with normal saline the calcium did not normalized.Consultation was obtained from surgery because of weight loss one of the surgeons was concerned for "neoplasm ,he ordered CT of the abdomen and pelvis with contrast, the CAT scan did not demonstrate any mass lesion, she also underwent colonoscopy and EGD as part of the evaluation for the weight loss, the colonoscopy and EGD did not demonstrate any significant neop lastic lesion or any significant lesion. Patient was very symptomatic with constipation, nausea, vomiting, abdominal pain, she also had electrolytes derangements. Nuclear imaging of the parathyroid gland was done this demonstrated adenoma, the serum intact PTH was severly elevated over 250 .She was seen by Dr. Cooley she underwent a very successful parathyroid adenectomyThe final pathology is pending but the frozen specimen was consistent with parathyroid adenoma. The most recent PTH is 4.2 and the calcium is 9.5 Physical Exam Vital Signs: Temp Pulse Resp BP Pulse Ox 98.1 F 90 16 124/75 100 10/30/18 15:40 10/30/18 15:40 10/30/18 15:40 10/30/18 15:40 10/30/18 17:07 Pulse Oximeter Continuous Start: 10/28/18 22:52 Freq: RTQ4 Status: Active Protocol: Document 10/30/18 17:07 [facility] (Rec: 10/30/18 17:08 [facility] [email or web address]) Pulse Oximetry Assessment Oxygen Saturation (92-100) 100 Oxygen Delivery Method Room Air Fraction of Inspired Oxygen (FIO2) 21 Equipment Usage Equipment in Use Continuous SpO2 Machine # 5 Intake & Output 10/29/18 10/30/18 10/31/18 06:59 06:59 06:59 Intake Total 4190 2902 2082 Output Total 510 30 Balance 3680 2872 2082 Weight 56.3 kg 56.3 kg General appearance: PRESENT: no acute distress, well-developed, well-nourished Head exam: PRESENT: atraumatic, normocephalic Eye exam: PRESENT: conjunctiva pink, EOMI, PERRLA Ear exam: PRESENT: normal external ear exam Mouth exam: PRESENT: moist, tongue midline Neck exam: PRESENT: full ROM Respiratory exam: PRESENT: clear to auscultation elif Cardiovascular exam: PRESENT: RRR, +S1, +S2 Pulses: PRESENT: normal dorsalis pedis pul, +2 pedal pulses bilateral Vascular exam: PRESENT: normal capillary refill GI/Abdominal exam: PRESENT: normal bowel sounds, soft Rectal exam: PRESENT: deferred Neurological exam: PRESENT: alert, awake, oriented to person, oriented to place, oriented to time, oriented to situation, CN II-XII grossly intact Psychiatric exam: PRESENT: appropriate affect, normal mood Skin exam: PRESENT: dry, intact, warm Results Laboratory Results: 10/30/18 07:24 10/30/18 07:24 10/30/18 10/30/18 07:24 07:24 WBC 6.1 D RBC 3.32 L Hgb 9.7 L Hct 28.2 L MCV 85 MCH 29.3 MCHC 34.5 RDW 15.7 H Plt Count 230 Seg Neutrophils % 74.7 Lymphocytes % 16.8 Monocytes % 8.2 Eosinophils % 0.0 Basophils % 0.3 Absolute Neutrophils 4.6 Absolute Lymphocytes 1.0 Absolute Monocytes 0.5 Absolute Eosinophils 0.0 Absolute Basophils 0.0 Sodium 141.2 Potassium 3.2 L Chloride 111 H Carbon Dioxide 18 L Anion Gap 12 BUN 14 Creatinine 0.77 Est GFR ( Amer) > 60 Est GFR (Non-Af Amer) > 60 Glucose 86 Calcium 9.5 Total Bilirubin 0.4 AST 24 ALT 33 Alkaline Phosphatase 76 Total Protein 6.2 L Albumin 3.6 Impressions: Chest X-Ray 10/21/18 11:29 IMPRESSION: NO ACUTE RADIOGRAPHIC FINDING IN THE CHEST. Abdomen/Pelvis CT 10/22/18 00:00 IMPRESSION: Negative for acute intra-abdominal/pelvic process. Hepatic and left renal cysts. Abundant stool in the colon. Fatty infiltrative change to the liver. TECHNICAL DOCUMENTATION: Quality ID # [id number]: Final reports with documentation of one or more dose reduction techniques (e.g., Automated exposure control, adjustment of the mA and/or kV according to patient size, use of iterative reconstruction technique) copyright 2011 [employer]- All Rights Reserved Parathyroid Scan Nuclear Medicine 10/22/18 00:00 IMPRESSION: PERSISTENT ACTIVITY INFERIOR TO THE LEFT LOBE OF THE THYROID CONSISTENT WITH A PARATHYROID ADENOMA. Skeletal Survey 10/22/18 00:00 IMPRESSION: Negative bone survey. Qualifiers - * PATIENT BEING DISCHARGED WITH ANY OF THE FOLLOWING DIAGNOSIS: No
[2018-10-30] MEDS: MORPHINE SULFATE 10 MG/ML INJ IV PRN (20:49)
[2018-10-31] MEDS: NORMAL SALINE 1000 ML 1,000 ML IV PRN ×2 (00:13→09:43)
[2018-10-31] MEDS: ONDANSETRON HCL INJ/PF 4 MG/2 ML SDV IV PRN ×2 (00:20→07:45)
[2018-10-31] MEDS: MORPHINE SULFATE 10 MG/ML INJ IV PRN (01:07)
[2018-10-31 07:40] LABS: ABSOLUTE LYMPHOCYTES (AUTO) 0.9 10^3/uL (0.5-4.7); ABSOLUTE MONOCYTES (AUTO) 0.4 10^3/uL (0.1-1.4); ABSOLUTE NEUT (AUTO) 2.7 10^3/uL (1.7-8.2); EOSINOPHILS % (AUTO) 1.1 % (0-6); HEMATOCRIT 29.2 % (36.0-47.0); HEMOGLOBIN 9.9 g/dL (12.0-15.5); LYMPHOCYTES % (AUTO) 22.6 % (13-45); MEAN CORPUSCULAR HGB CONC 33.9 g/dL (32.0-36.0); MEAN CORPUSCULAR VOLUME 86 fl (80-97); MONOCYTES % (AUTO) 10.3 % (3-13); PLATELET COUNT 245 10^3/uL (150-450); RED BLOOD COUNT 3.41 10^6/uL (3.72-5.28); RED CELL DISTRIBUTION WIDTH 15.4 % (11.5-14.0); TOTAL CELLS COUNTED % (AUTO) 100 %; WHITE BLOOD COUNT 4.2 10^3/uL (4.0-10.5)
[2018-10-31 07:54] LABS: APPEARANCE,URINE CLEAR; BILIRUBIN,URINE NEGATIVE (NEGATIVE); COLOR,URINE STRAW; GLUCOSE, URINE NEGATIVE (NEGATIVE); KETONES,URINE NEGATIVE (NEGATIVE); LEUKOCYTE ESTERASE,URINE NEGATIVE (NEGATIVE); NITRITE,URINE NEGATIVE (NEGATIVE); PROTEIN,URINE NEGATIVE (NEGATIVE); URINE SPECIFIC GRAVITY 1.009; UROBILINOGEN,URINE NEGATIVE mg/dL (<2.0)
[2018-10-31 08:01] LABS: ALBUMIN 3.8 g/dL (3.5-5.0); ANION GAP 13 (5-19); BLOOD UREA NITROGEN 7 mg/dL (7-20); CALCIUM 8.4 mg/dL (8.4-10.2); CARBON DIOXIDE 22 mmol/L (22-30); CHLORIDE 104 mmol/L (98-107); GLUCOSE 100 mg/dL (75-110); SODIUM 138.8 mmol/L (137-145)
[2018-10-31 08:03] LABS: POTASSIUM 2.6 mmol/L (3.6-5.0)
[2018-10-31] MEDS: ACETAMINOPHEN 325 MG TABLET PO PRN (09:34)
[2018-10-31] MEDS: CHOLECALCIFEROL (D3) 400 UNIT TABLET PO SCH (09:35)
[2018-10-31] MEDS: AMLODIPINE BESYLATE 10 MG TABLET PO SCH (09:35)
[2018-10-31] MEDS: POTASSIUM CHLORIDE 10 MEQ CAPSULE.ER PO SCH ×2 (09:36→11:57)
--- NOTE | 2018-10-31 11:41 | PDOC PROGRESS REPORT ---
Subjective Progress Note for:: 10/31/18 Subjective:: Patient's status post parathyroidectomy status post a hematoma removed discharged today but patient was complaining of left-sided flank pain decided to give the patient in the hospital for further evaluations Patient start like patient have a kidney stones Patient denied any chest pain to than any shortness of the breath Patient's UA is negative Reason For Visit: SYMPTOMATIC HYPERCALCEMIA, HTN Physical Exam Vital Signs: Temp Pulse Resp BP Pulse Ox 98.5 F 78 15 129/74 H 99 10/31/18 04:00 10/31/18 04:00 10/31/18 04:00 10/31/18 04:00 10/31/18 04:00 Pulse Oximeter Continuous Start: 10/28/18 22:52 Freq: RTQ4 Status: Complete Protocol: Document 10/30/18 23:44 [facility] (Rec: 10/30/18 23:44 [facility] [id number]) Pulse Oximetry Assessment Equipment Usage Equipment Discontinued Continuous SpO2 Machine # 5 Intake & Output 10/30/18 10/31/18 11/01/18 06:59 06:59 06:59 Intake Total 2902 3582 950 Output Total 30 Balance 2872 3582 950 Weight 56.3 kg 62.4 kg General appearance: PRESENT: no acute distress, well-developed, well-nourished Head exam: PRESENT: atraumatic, normocephalic Eye exam: PRESENT: conjunctiva pink, EOMI, PERRLA. ABSENT: scleral icterus Ear exam: PRESENT: normal external ear exam Mouth exam: PRESENT: moist, tongue midline Neck exam: PRESENT: full ROM. ABSENT: carotid bruit, JVD, lymphadenopathy, thyromegaly Respiratory exam: PRESENT: clear to auscultation elif Cardiovascular exam: PRESENT: RRR. ABSENT: diastolic murmur, rubs, systolic murmur Pulses: PRESENT: normal dorsalis pedis pul, +2 pedal pulses bilateral Vascular exam: PRESENT: normal capillary refill GI/Abdominal exam: PRESENT: normal bowel sounds, soft. ABSENT: distended, guarding, mass, organolmegaly, rebound, tenderness Rectal exam: PRESENT: deferred Musculoskeletal exam: PRESENT: ambulatory Neurological exam: PRESENT: alert, awake, oriented to person, oriented to place, oriented to time, oriented to situation, CN II-XII grossly intact. ABSENT: mot or sensory deficit Psychiatric exam: PRESENT: appropriate affect, normal mood. ABSENT: homicidal ideation, suicidal ideation Skin exam: PRESENT: dry, intact, warm. ABSENT: cyanosis, rash Results Laboratory Results: 10/31/18 07:26 10/31/18 07:26 10/31/18 10/31/18 10/31/18 06:50 07:26 07:26 WBC 4.2 RBC 3.41 L Hgb 9.9 L Hct 29.2 L MCV 86 MCH 29.0 MCHC 33.9 RDW 15.4 H Plt Count 245 Seg Neutrophils % 65.0 Lymphocytes % 22.6 Monocytes % 10.3 Eosinophils % 1.1 Basophils % 1.0 Absolute Neutrophils 2.7 Absolute Lymphocytes 0.9 Absolute Monocytes 0.4 Absolute Eosinophils 0.0 Absolute Basophils 0.0 Sodium 138.8 Potassium 2.6 L* Chloride 104 Carbon Dioxide 22 Anion Gap 13 BUN 7 Creatinine 0.69 Est GFR ( Amer) > 60 Est GFR (Non-Af Amer) > 60 Glucose 100 Calcium 8.4 Albumin 3.8 Urine Color STRAW Urine Appearance CLEAR Urine pH 6.0 Ur Specific [place] 1.009 Urine Protein NEGATIVE Urine Glucose (UA) NEGATIVE Urine Ketones NEGATIVE Urine Blood NEGATIVE Urine Nitrite NEGATIVE Ur Leukocyte Esterase NEGATIVE Urine WBC (Auto) 1 Impressions: Chest X-Ray 10/21/18 11:29 IMPRESSION: NO ACUTE RADIOGRAPHIC FINDING IN THE CHEST. Parathyroid Scan Nuclear Medicine 10/22/18 00:00 IMPRESSION: PERSISTENT ACTIVITY INFERIOR TO THE LEFT LOBE OF THE THYROID CONSISTENT WITH A PARATHYROID ADENOMA. Skeletal Survey 10/22/18 00:00 IMPRESSION: Negative bone survey. Assessment & Plan - Diagnosis (1) Flank pain Is this a current diagnosis for this admission?: Yes Plan: Will get the CT scan of the abdomen and pelvis to rule out any kidney stones (2) Essential (primary) hypertension Is this a current diagnosis for this admission?: Yes Plan: Mr. current medications (3) Hematoma of neck Qualifiers: Encounter type: initial encounter Qualified Code(s): S10.93XA - Contusion of unspecified part of neck, initial encounter Is this a current diagnosis for this admission?: Yes Plan: He also stable status post surgery (4) Hypercalcemia Is this a current diagnosis for this admission?: Yes Plan: Currently all stable (5) Parathyroid adenoma Is this a current diagnosis for this admission?: Yes (6) Hypokalemia Is this a current diagnosis for this admission?: Yes Plan: Replace the potassium - Time Time Spent with patient: 15-24 minutes Medications reviewed and adjusted accordingly: Yes Anticipated discharge: Home Within: Other - Plan Summary Plan Summary: Replace the potassium The CT scan of the abdomen and pelvis
[2018-10-31] MEDS ORDERED: PROMETHAZINE HCL 25 MG TABLET PO PRN (12:05)
--- NOTE | 2018-10-31 13:25 | RADIOLOGY REPORT (SQ) ---
EXAM DESCRIPTION: CT ABD/PELVIS NO ORAL OR IV COMPLETED DATE/TIME: 10/31/2018 11:35 am REASON FOR STUDY: FLANK PAIN COMPARISON: 10/22/2018 TECHNIQUE: CT scan of the abdomen and pelvis performed without intravenous or oral contrast. Images reviewed with lung, soft tissue, and bone windows. Reconstructed coronal and sagittal MPR images revi ewed. All images stored on PACS. All CT scanners at this facility use dose modulation, iterative reconstruction, and/or weight based d osing when appropriate to reduce radiation dose to as low as reasonably achievable (ALARA). [facility]: Dose Right [facility]: CareDose [facility]: Dose Right [facility]: Teradose 4D [facility]: Smart [employer] RADIATION DOSE: CT Rad equipment meets quality standard of care and radiation dose reduction techniq ues were employed. CTDIvol: 5.0 mGy. DLP: 250 mGy-cm.mGy. LIMITATIONS: None. FINDINGS: LOWER CHEST: Small right pleural effusion. NON-CONTRASTED LIVER, SPLEEN, ADRENALS: Evaluation limited by lack of IV contrast. No identified sign ificant masses. Simple cysts of the liver. PANCREAS: No masses. No peripancreatic inflammatory changes. GALLBLADDER: No identified stones by CT criteria. No inflammatory changes to suggest cholecystitis. RIGHT KIDNEY AND URETER: No suspicious masses. Assessment limited by lack of IV contrast. No signif icant calcifications. There is a redemonstrated small calcification in the right gonadal vein adjace nt to the mid right ureter. No hydronephrosis or hydroureter. LEFT KIDNEY AND URETER: No suspicious masses. Assessment limited by lack of IV contrast. No signifi cant calcifications. No hydronephrosis or hydroureter. AORTA AND RETROPERITONEUM: No aneurysm. No retroperitoneal masses or adenopathy. BOWEL AND PERITONEAL CAVITY: No obvious masses or inflammatory changes. No free fluid. APPENDIX: Normal. PELVIS, BLADDER, AND ABDOMINAL WALL:No abnormal masses. No free fluid. Bladder normal. BONES: No significant findings. OTHER: No other significant finding. IMPRESSION: 1. No noncontrast CT findings to explain acute right lower quadrant or right flank pain. No evidence of urinary tract calculus or hydronephrosis. Normal appendix. 2. New small right pleural effusion. COMMENT: Quality ID # 436: Final reports with documentation of one or more dose reduction techniques (e.g., Automated exposure control, adjustment of the mA and/or kV according to patient size, use of iterative reconstruction technique) TECHNICAL DOCUMENTATION: JOB ID: [id number] [employer]- All Rights Reserved Reading location - IP/workstation name: [email or web address]
[2018-10-31 14:22] LABS: ALBUMIN 3.9 g/dL (3.5-5.0); ANION GAP 19 (5-19); BILIRUBIN,DIRECT 0.3 mg/dL (0.0-0.4); BILIRUBIN,TOTAL 0.4 mg/dL (0.2-1.3); CARBON DIOXIDE 16 mmol/L (22-30); CHLORIDE 102 mmol/L (98-107); NEONATAL BILIRUBIN RESULT 0.1 mg/dL (0.1-1.1); SODIUM 137.3 mmol/L (137-145)
[2018-10-31 14:38] LABS: ALANINE AMINOTRANSFERASE 30 U/L (9-52); ALKALINE PHOSPHATASE 87 U/L (38-126); ASPARTATE AMINO TRANSFERASE 27 U/L (14-36); BLOOD UREA NITROGEN 7 mg/dL (7-20); CALCIUM 8.5 mg/dL (8.4-10.2); GLUCOSE 110 mg/dL (75-110); TOTAL PROTEIN 6.5 g/dL (6.3-8.2)
[2018-10-31 14:41] LABS: POTASSIUM 2.9 mmol/L (3.6-5.0)
[2018-10-31] MEDS ORDERED: POTASSIUM CHLORIDE 10 MEQ CAPSULE.ER PO ONE (16:00)
[2018-10-31] MEDS: PANTOPRAZOLE SODIUM 40 MG TABLET.DR PO SCH (17:17)
[2018-10-31] MEDS: POTASSIUM CHLORIDE 20 MEQ/50 ML RTU IV SCH ×2 (17:18→19:54)
[2018-10-31] MEDS: VALSARTAN 160 MG TABLET PO SCH (17:46)
[2018-10-31] MEDS ORDERED: MAGNESIUM SULFATE/D5W 1 GM/100 ML RTUPB IV ONE ×2 (18:00→21:00)
[2018-10-31] MEDS: TRAMADOL HCL 50 MG TABLET PO PRN (18:58)
[2018-10-31] MEDS ORDERED: POTASSIUM CHLORIDE 20 MEQ/50 ML RTU IV SCH (21:30)
--- NOTE | 2018-10-31 22:13 | PDOC PROGRESS REPORT ---
Subjective Progress Note for:: 10/31/18 Subjective:: lower back pains Reason For Visit: SYMPTOMATIC HYPERCALCEMIA, HTN Physical Exam Vital Signs: Temp Pulse Resp BP Pulse Ox 99.0 F 94 17 142/80 H 100 10/31/18 19:20 10/31/18 19:20 10/31/18 19:20 10/31/18 19:20 10/31/18 19:20 Pulse Oximeter Continuous Start: 10/28/18 22:52 Freq: RTQ4 Status: Complete Protocol: Document 10/30/18 23:44 [facility] (Rec: 10/30/18 23:44 [facility] [id number]) Pulse Oximetry Assessment Equipment Usage Equipment Discontinued Continuous SpO2 Machine # 5 Intake & Output 10/30/18 10/31/18 11/01/18 06:59 06:59 06:59 Intake Total 2902 3582 2550 Output Total 30 Balance 2872 3582 2550 Weight 56.3 kg 62.4 kg Exam: neck noswelling with mild tenderness at incision site Afebrile Ct scan abd/pelvis is normal Results Laboratory Results: 10/31/18 07:26 10/31/18 13:50 10/31/18 10/31/18 10/31/18 06:50 07:26 07:26 WBC 4.2 RBC 3.41 L Hgb 9.9 L Hct 29.2 L MCV 86 MCH 29.0 MCHC 33.9 RDW 15.4 H Plt Count 245 Seg Neutrophils % 65.0 Lymphocytes % 22.6 Monocytes % 10.3 Eosinophils % 1.1 Basophils % 1.0 Absolute Neutrophils 2.7 Absolute Lymphocytes 0.9 Absolute Monocytes 0.4 Absolute Eosinophils 0.0 Absolute Basophils 0.0 Sodium 138.8 Potassium 2.6 L* Chloride 104 Carbon Dioxide 22 Anion Gap 13 BUN 7 Creatinine 0.69 Est GFR ( Amer) > 60 Est GFR (Non-Af Amer) > 60 Glucose 100 Calcium 8.4 Magnesium Total Bilirubin AST ALT Alkaline Phosphatase Total Protein Albumin 3.8 Urine Color STRAW Urine Appearance CLEAR Urine pH 6.0 Ur Specific [place] 1.009 Urine Protein NEGATIVE Urine Glucose (UA) NEGATIVE Urine Ketones NEGATIVE Urine Blood NEGATIVE Urine Nitrite NEGATIVE Ur Leukocyte Esterase NEGATIVE Urine WBC (Auto) 1 10/31/18 10/31/18 13:50 13:50 WBC RBC Hgb Hct MCV MCH MCHC RDW Plt Count Seg Neutrophils % Lymphocytes % Monocytes % Eosinophils % Basophils % Absolute Neutrophils Absolute Lymphocytes Absolute Monocytes Absolute Eosinophils Absolute Basophils Sodium 137.3 Potassium 2.9 L* Chloride 102 Carbon Dioxide 16 L Anion Gap 19 BUN 7 Creatinine 0.68 Est GFR ( Amer) > 60 Est GFR (Non-Af Amer) > 60 Glucose 110 Calcium 8.5 Magnesium 0.9 L* Total Bilirubin 0.4 AST 27 ALT 30 Alkaline Phosphatase 87 Total Protein 6.5 Albumin 3.9 Urine Color Urine Appearance Urine pH Ur Specific [place] Urine Protein Urine Glucose (UA) Urine Ketones Urine Blood Urine Nitrite Ur Leukocyte Esterase Urine WBC (Auto) Impressions: Chest X-Ray 10/21/18 11:29 IMPRESSION: NO ACUTE RADIOGRAPHIC FINDING IN THE CHEST. Parathyroid Scan Nuclear Medicine 10/22/18 00:00 IMPRESSION: PERSISTENT ACTIVITY INFERIOR TO THE LEFT LOBE OF THE THYROID CONSISTENT WITH A PARATHYROID ADENOMA. Skeletal Survey 10/22/18 00:00 IMPRESSION: Negative bone survey. Abdomen/Pelvis CT 10/31/18 10:57 IMPRESSION: 1. No noncontrast CT findings to explain acute right lower quadrant or right flank pain. No evidence of urinary tract calculus or hydronephrosis. Normal appendix. 2. New small right pleural effusion. Assessment & Plan - Time Time Spent with patient: 15-24 minutes - Plan Summary Plan Summary: She remaains atable with normal Calcium levels Back pains likely from being bedridden for a few days since CT scan normal. U/A also normal Could probably be discharge tomorrow Will follow in the surgical clinic in about 10 days
[2018-11-01] MEDS: PANTOPRAZOLE SODIUM 40 MG TABLET.DR PO SCH ×2 (05:17→18:13)
[2018-11-01 07:30] LABS: ABSOLUTE EOSINOPHILS # (AUTO) 0.1 10^3/uL (0.0-0.6); ABSOLUTE LYMPHOCYTES (AUTO) 1.1 10^3/uL (0.5-4.7); ABSOLUTE MONOCYTES (AUTO) 0.6 10^3/uL (0.1-1.4); ABSOLUTE NEUT (AUTO) 2.4 10^3/uL (1.7-8.2); BASOPHILS % (AUTO) 1.2 % (0-2); HEMATOCRIT 30.9 % (36.0-47.0); HEMOGLOBIN 10.4 g/dL (12.0-15.5); MEAN CORPUSCULAR HEMOGLOBIN 28.7 pg (27.0-33.4); MEAN CORPUSCULAR HGB CONC 33.7 g/dL (32.0-36.0); MEAN CORPUSCULAR VOLUME 85 fl (80-97); MONOCYTES % (AUTO) 13.8 % (3-13); PLATELET COUNT 260 10^3/uL (150-450); RED BLOOD COUNT 3.62 10^6/uL (3.72-5.28); RED CELL DISTRIBUTION WIDTH 15.2 % (11.5-14.0); TOTAL CELLS COUNTED % (AUTO) 100 %; WHITE BLOOD COUNT 4.2 10^3/uL (4.0-10.5)
[2018-11-01 07:42] LABS: ANION GAP 11 (5-19); BLOOD UREA NITROGEN 7 mg/dL (7-20); CALCIUM 9.1 mg/dL (8.4-10.2); CARBON DIOXIDE 20 mmol/L (22-30); CHLORIDE 105 mmol/L (98-107); GLUCOSE 98 mg/dL (75-110); SODIUM 136.3 mmol/L (137-145)
[2018-11-01 07:52] LABS: POTASSIUM 3.9 mmol/L (3.6-5.0)
[2018-11-01] MEDS: AMLODIPINE BESYLATE 10 MG TABLET PO SCH (09:58)
[2018-11-01] MEDS: CHOLECALCIFEROL (D3) 400 UNIT TABLET PO SCH (09:58)
--- NOTE | 2018-11-01 10:27 | PDOC PROGRESS REPORT ---
Subjective Progress Note for:: 11/01/18 Subjective:: Patient is feeling much better Since CT abdomen and pelvis did not find any acute changes His potassium is all normal Patient's magnesium is still little low Reason For Visit: SYMPTOMATIC HYPERCALCEMIA, HTN Physical Exam Vital Signs: Temp Pulse Resp BP Pulse Ox 98.6 F 86 16 135/70 H 100 11/01/18 08:00 11/01/18 08:00 11/01/18 08:00 11/01/18 08:00 11/01/18 08:00 Pulse Oximeter Continuous Start: 10/28/18 22:52 Freq: RTQ4 Status: Complete Protocol: Document 10/30/18 23:44 [facility] (Rec: 10/30/18 23:44 [facility] [id number]) Pulse Oximetry Assessment Equipment Usage Equipment Discontinued Continuous SpO2 Machine # 5 Intake & Output 10/31/18 11/01/18 11/02/18 06:59 06:59 06:59 Intake Total 3582 3150 Balance 3582 3150 Weight 62.4 kg General appearance: PRESENT: no acute distress, well-developed, well-nourished Head exam: PRESENT: atraumatic, normocephalic Eye exam: PRESENT: conjunctiva pink, EOMI, PERRLA. ABSENT: scleral icterus Ear exam: PRESENT: normal external ear exam Mouth exam: PRESENT: moist, tongue midline Neck exam: PRESENT: full ROM. ABSENT: carotid bruit, JVD, lymphadenopathy, thyromegaly Respiratory exam: PRESENT: clear to auscultation elif Cardiovascular exam: PRESENT: RRR. ABSENT: diastolic murmur, rubs, systolic murmur Vascular exam: PRESENT: normal capillary refill GI/Abdominal exam: PRESENT: normal bowel sounds, soft. ABSENT: distended, guarding, mass, organolmegaly, rebound, tenderness Rectal exam: PRESENT: deferred Extremities exam: ABSENT: pedal edema Musculoskeletal exam: PRESENT: ambulatory Neurological exam: PRESENT: alert, awake, oriented to person, oriented to place, oriented to time, oriented to situation, CN II-XII grossly intact. ABSENT: motor sensory deficit Psychiatric exam: PRESENT: appropriate affect, normal mood. ABSENT: homicidal ideation, suicidal ideation Skin exam: PRESENT: dry, intact, warm. ABSENT: cyanosis, rash Results Laboratory Results: 11/01/18 07:10 11/01/18 07:10 10/31/18 10/31/18 11/01/18 13:50 13:50 07:10 WBC 4.2 RBC 3.62 L Hgb 10.4 L Hct 30.9 L MCV 85 MCH 28.7 MCHC 33.7 RDW 15.2 H Plt Count 260 Seg Neutrophils % 57.0 Lymphocytes % 26.0 Monocytes % 13.8 H Eosinophils % 2.0 Basophils % 1.2 Absolute Neutrophils 2.4 Absolute Lymphocytes 1.1 Absolute Monocytes 0.6 Absolute Eosinophils 0.1 Absolute Basophils 0.0 Sodium 137.3 Potassium 2.9 L* Chloride 102 Carbon Dioxide 16 L Anion Gap 19 BUN 7 Creatinine 0.68 Est GFR ( Amer) > 60 Est GFR (Non-Af Amer) > 60 Glucose 110 Calcium 8.5 Magnesium 0.9 L* Total Bilirubin 0.4 AST 27 ALT 30 Alkaline Phosphatase 87 Total Protein 6.5 Albumin 3.9 11/01/18 11/01/18 07:10 07:10 WBC RBC Hgb Hct MCV MCH MCHC RDW Plt Count Seg Neutrophils % Lymphocytes % Monocytes % Eosinophils % Basophils % Absolute Neutrophils Absolute Lymphocytes Absolute Monocytes Absolute Eosinophils Absolute Basophils Sodium 136.3 L Potassium 3.9 D Chloride 105 Carbon Dioxide 20 L Anion Gap 11 BUN 7 Creatinine 0.68 Est GFR ( Amer) > 60 Est GFR (Non-Af Amer) > 60 Glucose 98 Calcium 9.1 Magnesium 1.3 L Total Bilirubin AST ALT Alkaline Phosphatase Total Protein Albumin Impressions: Chest X-Ray 10/21/18 11:29 IMPRESSION: NO ACUTE RADIOGRAPHIC FINDING IN THE CHEST. Parathyroid Scan Nuclear Medicine 10/22/18 00:00 IMPRESSION: PERSISTENT ACTIVITY INFERIOR TO THE LEFT LOBE OF THE THYROID CONSISTENT WITH A PARATHYROID ADENOMA. Skeletal Survey 10/22/18 00:00 IMPRESSION: Negative bone survey. Abdomen/Pelvis CT 10/31/18 10:57 IMPRESSION: 1. No noncontrast CT findings to explain acute right lower quadrant or right flank pain. No evidence of urinary tract calculus or hydronephrosis. Normal appendix. 2. New small right pleural effusion. Assessment & Plan - Diagnosis (1) Flank pain Is this a current diagnosis for this admission?: Yes Plan: Currently all resolved (2) Essential (primary) hypertension Is this a current diagnosis for this admission?: Yes Plan: Mr. current medications (3) Hematoma of neck Qualifiers: Encounter type: initial encounter Qualified Code(s): S10.93XA - Contusion of unspecified part of neck, initial encounter Is this a current diagnosis for this admission?: Yes Plan: He also stable status post surgery (4) Hypercalcemia Is this a current diagnosis for this admission?: Yes Plan: Currently all stable (5) Parathyroid adenoma Is this a current diagnosis for this admission?: Yes (6) Hypokalemia Is this a current diagnosis for this admission?: Yes Plan: Currently all resolved - Time Time Spent with patient: 15-24 minutes Medications reviewed and adjusted accordingly: Yes Anticipated discharge: Home Within: within 24 hours - Plan Summary Plan Summary: Will replace the magnesium
[2018-11-01] MEDS ORDERED: MAGNESIUM SULFATE/D5W 1 GM/100 ML RTUPB IV ONE (10:30)
--- NOTE | 2018-11-01 11:36 | PDOC PROGRESS REPORT ---
Subjective Progress Note for:: 11/01/18 Subjective:: Patient doing well feels better overall less abdominal pain less neck pain Reason For Visit: SYMPTOMATIC HYPERCALCEMIA, HTN Physical Exam Vital Signs: Temp Pulse Resp BP Pulse Ox 98.6 F 86 16 135/70 H 100 11/01/18 08:00 11/01/18 08:00 11/01/18 08:00 11/01/18 08:00 11/01/18 08:00 Pulse Oximeter Continuous Start: 10/28/18 22:52 Freq: RTQ4 Status: Complete Protocol: Document 10/30/18 23:44 CMI (Rec: 10/30/18 23:44 CMI [id number]) Pulse Oximetry Assessment Equipment Usage Equipment Discontinued Continuous SpO2 Machine # 5 Intake & Output 10/31/18 11/01/18 11/02/18 06:59 06:59 06:59 Intake Total 3582 3150 Balance 3582 3150 Weight 62.4 kg General appearance: PRESENT: no acute distress Neck exam: PRESENT: other - Neck looks good; Steri-Strips still in place; No swelling Results Laboratory Results: 11/01/18 07:10 11/01/18 07:10 10/31/18 10/31/18 11/01/18 13:50 13:50 07:10 WBC 4.2 RBC 3.62 L Hgb 10.4 L Hct 30.9 L MCV 85 MCH 28.7 MCHC 33.7 RDW 15.2 H Plt Count 260 Seg Neutrophils % 57.0 Lymphocytes % 26.0 Monocytes % 13.8 H Eosinophils % 2.0 Basophils % 1.2 Absolute Neutrophils 2.4 Absolute Lymphocytes 1.1 Absolute Monocytes 0.6 Absolute Eosinophils 0.1 Absolute Basophils 0.0 Sodium 137.3 Potassium 2.9 L* Chloride 102 Carbon Dioxide 16 L Anion Gap 19 BUN 7 Creatinine 0.68 Est GFR ( Amer) > 60 Est GFR (Non-Af Amer) > 60 Glucose 110 Calcium 8.5 Magnesium 0.9 L* Total Bilirubin 0.4 AST 27 ALT 30 Alkaline Phosphatase 87 Total Protein 6.5 Albumin 3.9 11/01/18 11/01/18 07:10 07:10 WBC RBC Hgb Hct MCV MCH MCHC RDW Plt Count Seg Neutrophils % Lymphocytes % Monocytes % Eosinophils % Basophils % Absolute Neutrophils Absolute Lymphocytes Absolute Monocytes Absolute Eosinophils Absolute Basophils Sodium 136.3 L Potassium 3.9 D Chloride 105 Carbon Dioxide 20 L Anion Gap 11 BUN 7 Creatinine 0.68 Est GFR ( Amer) > 60 Est GFR (Non-Af Amer) > 60 Glucose 98 Calcium 9.1 Magnesium 1.3 L Total Bilirubin AST ALT Alkaline Phosphatase Total Protein Albumin Impressions: Chest X-Ray 10/21/18 11:29 IMPRESSION: NO ACUTE RADIOGRAPHIC FINDING IN THE CHEST. Parathyroid Scan Nuclear Medicine 10/22/18 00:00 IMPRESSION: PERSISTENT ACTIVITY INFERIOR TO THE LEFT LOBE OF THE THYROID CONSISTENT WITH A PARATHYROID ADENOMA. Skeletal Survey 10/22/18 00:00 IMPRESSION: Negative bone survey. Abdomen/Pelvis CT 10/31/18 10:57 IMPRESSION: 1. No noncontrast CT findings to explain acute right lower quadrant or right flank pain. No evidence of urinary tract calculus or hydronephrosis. Normal appendix. 2. New small right pleural effusion. Assessment & Plan - Diagnosis (1) Parathyroid adenoma Is this a current diagnosis for this admission?: Yes Plan: Impression: Patient is doing well status post parathyroidectomy and take back 24 hours later for hematoma, normalization of calcium and PTH level Recommendations: 1. Allow Steri-Strips to fall off; may shower 2. Return to [facility] to follow-up with Dr. Cooley in 1-2 weeks.
[2018-11-01] MEDS ORDERED: VALSARTAN 80 MG TABLET ONE (19:01)
[2018-11-01] MEDS: VALSARTAN 160 MG TABLET PO SCH (19:16)
[2018-11-02] MEDS: PANTOPRAZOLE SODIUM 40 MG TABLET.DR PO SCH (05:07)
[2018-11-02 05:33] LABS: ANION GAP 11 (5-19); BLOOD UREA NITROGEN 9 mg/dL (7-20); CALCIUM 9.3 mg/dL (8.4-10.2); CARBON DIOXIDE 23 mmol/L (22-30); CHLORIDE 102 mmol/L (98-107); GLUCOSE 101 mg/dL (75-110); POTASSIUM 3.6 mmol/L (3.6-5.0); SODIUM 136.3 mmol/L (137-145)
[2018-11-02] MEDS: AMLODIPINE BESYLATE 10 MG TABLET PO SCH (09:23)
[2018-11-02] MEDS: CHOLECALCIFEROL (D3) 400 UNIT TABLET PO SCH (09:23)
[2018-11-02] MEDS ORDERED: MAGNESIUM OXIDE 400 MG TABLET PO ONE (10:00)
[2018-11-02] MEDS ORDERED: MAGNESIUM SULFATE 1 GM/D5W 100 ML IV SCH (10:00)
[2018-11-02 11:44] VITALS: BP 130/81
--- NOTE | 2018-11-02 18:49 | Operative Report ---
Nonrecallable Operative Report DATE OF SURGERY: 10/29/18 PREOPERATIVE DIAGNOSIS: Neck hematoma after parathyroidectomy POSTOPERATIVE DIAGNOSIS: Same as above OPERATION: 1. Exploration of the anterior neck. 2. Evacuation of hematoma between the platysma and strap muscles. SURGEON: JENNIFER ROSENTHAL MAKEUP SALES CONSULTANT: MARIAH YOO ANESTHESIA: GA TISSUE REMOVED OR ALTERED: 30 cc of hematoma in the anterior neck. COMPLICATIONS: 30 mL hematoma accumulated in the anterior neck after parathyroid surgery. ESTIMATED BLOOD LOSS: 30 mL hematoma PROCEDURE: Drains/implants: Surgicel in the anterior neck. Procedure in detail: After informed consent was obtained, the patient was brought to the operating room laid in the supine position. The area of the anterior neck was prepped and draped in a normal sterile fashion. The previous incision was opened using a 15 blade scalpel. The platysmal sutures were divided, revealing a large hematoma beneath the platysma. The hematoma was evacuated, and the neck was irrigated. There was noted to be oozing at the anterior jugular vein on the left. This was suture ligated. Next attention was turned to meticulously evaluating the wound bed. The wound was examined and palpated. No hematoma could be identified beneath the strap muscles, so the strap muscles were left intact. The bleeding was felt to have come from the anterior jugular vein. After the hematoma was evacuated and hemostasis was achieved, a piece of Surgicel was placed on top of the strap muscles, in the anterior neck. The platysma was then closed using interrupted 3-0 Vicryl suture. The skin was closed using 4-0 Vicryl Rapide suture in subcuticular fashion. A dressing was placed, and the procedure was concluded. All sponge, instrument, and needle counts were correct x2. Condition: Stable. Mariah Yoo PA-C was scrubbed and present the entirety of the procedure. She assisted with all portions of the procedure including opening of the neck, evacuation of the hematoma, closure of the platysma, and closure of the skin.
== END 2018-11-02 12:15 | disposition home or self-care (01) | DRG 626 ==
LOC: 4S 11:02
PROVIDERS: ADMIT Internal Medicine; ATTEND Internal Medicine
PROC: 0DJD8ZZ Inspection of Lower Intestinal Tract, Via Natural or Artificial Opening Endoscopic (ICD-10-PCS; 2018-10-24)
PROC: 0DJ08ZZ Inspection of Upper Intestinal Tract, Via Natural or Artificial Opening Endoscopic (ICD-10-PCS; 2018-10-27)
PROC: 0GBP0ZZ Excision of Left Inferior Parathyroid Gland, Open Approach (ICD-10-PCS; principal; 2018-10-28 15:15)
PROC: 05QN0ZZ Repair Left Internal Jugular Vein, Open Approach (ICD-10-PCS; 2018-10-29)
PROC: 0KC30ZZ Extirpation of Matter from Left Neck Muscle, Open Approach (ICD-10-PCS; 2018-10-29)
DX: D35.1 Benign neoplasm of parathyroid gland (principal); E89.820 Postprocedural hematoma of an endocrine system organ or structure following an endocrine system procedure; Q43.8 Other specified congenital malformations of intestine; N28.1 Cyst of kidney, acquired; K76.89 Other specified diseases of liver; M89.8X9 Other specified disorders of bone, unspecified site; E21.0 Primary hyperparathyroidism; E87.6 Hypokalemia; I10 Essential (primary) hypertension; K59.00 Constipation, unspecified; R63.4 Abnormal weight loss; Y83.8 Other surgical procedures as the cause of abnormal reaction of the patient, or of later complication, without mention of misadventure at the time of the procedure; K29.70 Gastritis, unspecified, without bleeding
CPT/HCPCS: 300; 320; 36415; 43235; 45378; 71046; 74176; 74177; 77075; 78070; 80048; 80053; 81001; 82040; 82306; 82310; 82941; 83735; 83970; 84165; 84166; 84439; 84443; 85025; 85027; 88305; 88312; 88331; 93005; 93010; 94762; A9500; J0131; J0171; J0330; J0690; J1100; J1170; J1200; J1610; J1885; J2250; J2270; J2310; J2405; J2550; J2704; J3010; J3475; J3480; J3490; J7030; Q9969; S0119

== ENCOUNTER → 2018-11-09 | Outpatient (CLI) | payer OTHER ==
[2018-11-09 10:12] LABS: ABSOLUTE EOSINOPHILS # (AUTO) 0.1 10^3/uL (0.0-0.6); ABSOLUTE LYMPHOCYTES (AUTO) 0.8 10^3/uL (0.5-4.7); ABSOLUTE MONOCYTES (AUTO) 0.5 10^3/uL (0.1-1.4); ABSOLUTE NEUT (AUTO) 1.9 10^3/uL (1.7-8.2); BASOPHILS % (AUTO) 1.4 % (0-2); EOSINOPHILS % (AUTO) 2.7 % (0-6); HEMATOCRIT 32.4 % (36.0-47.0); HEMOGLOBIN 10.7 g/dL (12.0-15.5); LYMPHOCYTES % (AUTO) 24.4 % (13-45); MEAN CORPUSCULAR HEMOGLOBIN 28.5 pg (27.0-33.4); MEAN CORPUSCULAR VOLUME 86 fl (80-97); MONOCYTES % (AUTO) 15.3 % (3-13); PLATELET COUNT 336 10^3/uL (150-450); RED BLOOD COUNT 3.76 10^6/uL (3.72-5.28); RED CELL DISTRIBUTION WIDTH 15.2 % (11.5-14.0); SEGMENTED NEUTROPHILS % (AUTO) 56.2 % (42-78); TOTAL CELLS COUNTED % (AUTO) 100 %; WHITE BLOOD COUNT 3.4 10^3/uL (4.0-10.5)
[2018-11-09 10:39] LABS: ALANINE AMINOTRANSFERASE 49 U/L (9-52); ALBUMIN 4.2 g/dL (3.5-5.0); ALKALINE PHOSPHATASE 103 U/L (38-126); ANION GAP 12 (5-19); ASPARTATE AMINO TRANSFERASE 31 U/L (14-36); BILIRUBIN,DIRECT 0.2 mg/dL (0.0-0.4); BILIRUBIN,TOTAL 0.4 mg/dL (0.2-1.3); BLOOD UREA NITROGEN 7 mg/dL (7-20); CALCIUM 9.6 mg/dL (8.4-10.2); CARBON DIOXIDE 24 mmol/L (22-30); CHLORIDE 102 mmol/L (98-107); GLUCOSE 106 mg/dL (75-110); POTASSIUM 3.9 mmol/L (3.6-5.0); SODIUM 137.8 mmol/L (137-145); TOTAL PROTEIN 7.5 g/dL (6.3-8.2)
[2018-11-09 10:40] LABS: ANISOCYTOSIS SLIGHT; OVALOCYTES 2+; PLATELET COMMENT ADEQUATE; POIKILOCYTOSIS 2+; SCHISTOCYTES SLIGHT
[2018-11-09 10:56] LABS: FREE T4 (FREE THYROXINE) 1.38 ng/dL (0.78-2.19)
[2018-11-09 11:10] LABS: THYROID STIMULATING HORMONE 1.28 uIU/mL (0.47-4.68)
== END ==
LOC: OD 09:36
PROVIDERS: ATTEND Internal Medicine
DX: D64.9 Anemia, unspecified (principal); E21.0 Primary hyperparathyroidism
CPT/HCPCS: 36415; 80053; 82607; 82728; 83010; 83540; 83615; 83970; 84439; 84443; 85025

== ENCOUNTER → 2020-06-12 | Outpatient (CLI) | payer SELFPAY ==
--- NOTE | 2020-06-12 13:52 | WOMENS IMAGING REPORT ---
EXAM DESCRIPTION: 3D SCREENING MAMMO BILAT IMAGES COMPLETED DATE/TIME: 06/12/2020 7:39 am REASON FOR STUDY: Z12.31 ENCNTR SCREEN MAMMOGRAM FOR MALIGNANT NEOPLASM OF BREAST Z12.31 ENCNTR SCR EEN MAMMOGRAM FOR MALIGNANT NEOPLASM OF MT COMPARISON: New baseline EXAM PARAMETERS: Views: Standard craniocaudal and mediolateral oblique views of each breast recorded using digital acquisition and breast tomosynthesis. Read with the assistance of CAD. .[facility] - [employer] Version 9.2 LIMITATIONS: None. FINDINGS: No suspicious masses, suspicious calcifications or architectural distortion. No areas of c oncern. IMPRESSION: NEGATIVE MAMMOGRAM. BIRADS 1. BREAST DENSITY: b. There are scattered areas of fibroglandular density. BIRAD: ASSESSMENT: 1 NEGATIVE RECOMMENDATION: ROUTINE SCREENING Please continue yearly bilateral screening mammography/tomosynthesis in May 2021 COMMENT: The patient has been notified of the results by letter per [place] requirements. Additional no tification policies are in place for contacting patient with suspicious or incomplete findings. Quality ID #[id number]: The [employer] recommends an annual screening mammogram for women aged 40 years or over. This facility utilizes a reminder system to ensure that all patients receive reminder letters, and/or direct phone calls for appointments. This includes reminders for routine scr eening mammograms, diagnostic mammograms, or other Breast Imaging Interventions when appropriate. Th is patient will be placed in the appropriate reminder system. TECHNICAL DOCUMENTATION: FINDING NUMBER: (1) ASSESSMENT: (1) JOB ID: [id number] 2010 [employer]- All Rights Reserved Reading location - IP/workstation name: [email or web address]
== END ==
LOC: WI 07:10
PROVIDERS: ATTEND Internal Medicine
DX: Z12.31 Encounter for screening mammogram for malignant neoplasm of breast (principal); N64.89 Other specified disorders of breast
CPT/HCPCS: 77063; 77067